=== PATIENT | female | born 1965 | race Caucasian/White ===

== ENCOUNTER 2017-07-16 11:29 | Outpatient (CLI) | payer OTHER | END 2017-07-16 11:30 | disposition home or self-care (01) | LOC: DTY/OP 11:29 | PROVIDERS: ATTEND Surgery | DX: E11.9 Type 2 diabetes mellitus without complications (principal); E78.5 Hyperlipidemia, unspecified | CPT/HCPCS: 97802 ==

== ENCOUNTER 2017-08-06 08:00 | Inpatient (IN) | payer OTHER ==
[2017-08-06 08:54] VITALS: BMI 38.2
[2017-08-11] MEDS ORDERED: Heparin 5,000 UNITS/ML VIAL ONE (08:37)
[2017-08-11] MEDS ORDERED: CEFAZOLIN/Water 2 GM/20 ML SYRINGE ONE (08:37)
[2017-08-11] MEDS ORDERED: Midazolam HCl 2 mg/2 ml Vial ONE ×2 (08:37→09:27)
[2017-08-11] MEDS ORDERED: Bupivacaine/Epinephrine 0.25% 30 ML VIAL ONE (09:04)
[2017-08-11] MEDS ORDERED: Fentanyl 250 MCG/5 ML VIAL ONE (09:27)
[2017-08-11] MEDS ORDERED: Promethazine HCl 25 MG/ML VIAL IM PRN ×2 (11:00→11:05)
[2017-08-11] MEDS ORDERED: diphenhydrAMINE 25 MG CAP PO PRN (11:00)
[2017-08-11] MEDS ORDERED: HYDROmorphone 2 MG/ML VIAL SLOW IVP PRN (11:00)
[2017-08-11] MEDS ORDERED: Naloxone HCl 0.4 mg/ml Vial IV PRN (11:00)
[2017-08-11] MEDS ORDERED: Promethazine HCl 25 MG/ML VIAL SLOW IVP PRN (11:00)
[2017-08-11] MEDS ORDERED: Fentanyl 5000 MCG/250 ML CADD IVPB PRN (11:00)
[2017-08-11] MEDS ORDERED: Meperidine HCl/PF 25 MG/ML VIAL SLOW IVP PRN (11:00)
[2017-08-11] MEDS ORDERED: Ondansetron HCl/PF 4 MG/2 ML Vial IVP PRN ×2 (11:00→11:05)
[2017-08-11] MEDS ORDERED: Zolpidem Tartrate 5 MG TAB PO PRN (11:00)
[2017-08-11] MEDS ORDERED: diphenhydrAMINE 50 MG/ML VIAL IM PRN (11:00)
[2017-08-11] MEDS ORDERED: Communication Order-Pharmacy FS SCH (11:00)
[2017-08-11] MEDS ORDERED: diphenhydrAMINE 50 MG/ML VIAL IVP PRN ×2 (11:00→11:05)
[2017-08-11] MEDS ORDERED: Morphine Sulfate 2 MG/ML SYRINGE SLOW IVP PRN (11:00)
[2017-08-11] MEDS ORDERED: Dextrose 50% Abboject 50 ML SYRINGE SLOW IVP PRN (11:05)
[2017-08-11] MEDS ORDERED: hydrALAZINE 20 MG/ML VIAL SLOW IVP PRN (11:05)
[2017-08-11] MEDS ORDERED: Dextrose 5% in Water 1,000 ML IV PRN (11:05)
[2017-08-11] MEDS ORDERED: Hydrocodone-Acetamin 15 ML UDCUP PO PRN (11:05)
[2017-08-11] MEDS ORDERED: Insulin Regular 300 UNITS/3 ML VIAL SC PRN (11:05)
[2017-08-11] MEDS ORDERED: fentaNYL Citrate/PF 2,000 MCG in Sodium Chloride 0.9% 60 ML IV PRN (11:15)
[2017-08-11] MEDS ORDERED: Fentanyl 100 MCG/2 ML VIAL ONE (11:24)
--- NOTE | 2017-08-11 11:35 | OP ---
PREOPERATIVE DIAGNOSIS: Morbid obesity. SURGEON: Rad Sanchez M.D. PROCEDURE PERFORMED: Laparoscopic sleeve gastrectomy with esophagogastroscopy. INDICATIONS: A 51-year-old female, morbidly obese, who has attempted multiple weight loss programs w [facility]. FINDINGS: A 38 [place] bougie used. PROCEDURE IN DETAIL: After informed consent was obtained, the patient was taken to the operating jeni m and given general endotracheal anesthesia. She was placed in the supine position. The abdomen was prepped and draped in usual fashion. Local anesthesia infiltrated subcutaneously and deep. A 12 mm incision was performed. A Veress needle inserted. Drop test performed. Pneumoperitoneum was creat ed to a volume of 2 liters of carbon dioxide. Utilizing a blunt 12 mm trocar and 0 degree laparoscop e, direct visual entry abdominal cavity was performed. Unfortunately, during entry we are being [facility] ed to use a trial of a new trocar. These trocars are not sharp and were blunt and took a lot of forc e even though it was visualizing the entry. After we got it in, tip of the trocar had created a supe rficial laceration of the left superior aspect of the liver. This did not bleed much and stopped ble eding very quickly, which is direct pressure. Pneumoperitoneum was then created to a pressure of 15 mmHg. The patient placed in steep reverse Trendelenburg position. [place] liver retractor inserte d. Left lobe of liver retracted superiorly. The pylorus identified and a 12 mm port placed on the r ight beneath it and two 12s placed left subcostal. The omentum was taken off the greater curvature 5 cm from the pylorus utilizing the LigaSure. Short gastrics divided with LigaSure, left crura define d with the LigaSure. A 38-Bhutanese bougie inserted directed into the antrum. The linear 60 mm green l oad stapler used to divide the antrum gold load along the bougie, and a series of blues through the a ngle of [facility]. Intraoperative endoscopy was performed. The video endoscope inserted under direct visi on and advanced into the sleeve. The staple line inspected. There was no bleeding. Staple line the n tested by inflating the new stomach with pressurized air under water. There was no air leak. Stom ach decompressed. Scope removed. The remnant stomach removed from the abdomen through the left late ral port site. The fascia closed with interrupted 0 Vicryl suture and the GraNee needle. The liver again inspected, no bleeding. Hemostasis was assured. Trocars and retractors removed. Skin closed with interrupted 4-0 Rapide. Dermabond applied. The patient tolerated the procedure well and was tr ansferred to recovery in good condition. Sponge and needle count verified correct x2.
[2017-08-11] MEDS ORDERED: HYDROmorphone 0.5 MG/0.5 ML SYRINGE ONE (12:54)
[2017-08-11] MEDS ORDERED: Dexamethasone 20 MG/5 ML VIAL ONE (12:59)
[2017-08-11] MEDS ORDERED: Lidocaine 1% PF 5 ML VIAL ONE (12:59)
[2017-08-11] MEDS ORDERED: PROPOFOL 200 MG/20 ML VIAL ONE (12:59)
[2017-08-11] MEDS ORDERED: Glycopyrrolate 0.2 MG/ML 5 ML SYRINGE ONE (12:59)
[2017-08-11] MEDS ORDERED: Ondansetron HCl/PF 4 MG/2 ML Vial ONE (12:59)
[2017-08-11] MEDS: 1/2 NS w/KCL 20 mEq 1,000 ML IV SCH ×2 (18:04→18:11)
[2017-08-11] MEDS: CEFAZOLIN/Water 2 GM/20 ML SYRINGE SLOW IVP SCH (18:11)
[2017-08-12] MEDS: CEFAZOLIN/Water 2 GM/20 ML SYRINGE SLOW IVP SCH (00:19)
[2017-08-12] MEDS: 1/2 NS w/KCL 20 mEq 1,000 ML IV SCH ×2 (01:29→21:15)
[2017-08-12 06:00] LABS: #Lymphocytes 1.5 thou/uL (1.20-3.40); #Monocytes 0.6 thou/uL (0.11-0.59); #Neutrophils 8.1 thou/uL (1.40-6.50); %Basophils 0.1 % (0.0-1.0); %Eosinophils 0.1 % (0.0-10.0); %Lymphocytes 14.6 % (21.0-51.0); %Monocytes 5.6 % (0.0-10.0); %Neutrophils 79.7 % (42.0-75.0); Hemoglobin 13.7 g/dL (12.0-16.0); Mean Corpuscular HGB CONC 34.7 g/dL (32.0-36.0); Mean Corpuscular Hemoglobin 33.5 pg (27.0-31.0); Mean Corpuscular Volume 96.6 fl (81.0-99.0); Mean Platelet Volume 7.4 fL (7.4-10.4); Platelet Count 253 thou/uL (130-400); RBC Distribution Width 11.7 % (11.5-14.5); Red Blood Cell (RBC) Count 4.08 mill/uL (4.20-5.40); White Blood Cell (WBC) Count 10.1 thou/uL (4.8-10.8)
[2017-08-12 06:21] LABS: Anion Gap 16 mmol/L (10-20); BUN (Urea Nitrogen) 11 mg/dL (9.8-20.1); Calc. Creatinine Clearance 155 mL/min (70-130); Calcium 8.8 mg/dL (7.8-10.44); Carbon Dioxide 21 mmol/L (22-29); Chloride 103 mmol/L (98-107); Estimated GFR-MDRD 82; Glucose 105 mg/dL (70-105); Sodium 136 mmol/L (136-145)
[2017-08-12] MEDS ORDERED: Enoxaparin Sodium 40 MG/0.4 ML SYRINGE SC SCH (09:00)
[2017-08-12] MEDS ORDERED: Pantoprazole 40 MG VIAL IVP SCH (09:00)
--- NOTE | 2017-08-12 09:20 | RAD ---
LIMITED UPPER GI WITH 15 ML GASTROGRAFIN: History: Status post vertical sleeve gastrectomy. FINDINGS: There is normal passage of contrast from the esophagus into the stomach and duodenum and surgical sit e. No contrast extravasation is seen. IMPRESSION: No evidence of leak or obstruction. POS: MATTI
[2017-08-12 11:39] VITALS: BP 116/72; TEMP 98.7
[2017-08-12] MEDS ORDERED: GASTROGRAFIN 30 ML BOT ONE (13:25)
--- NOTE | 2017-08-12 13:48 | DIS ---
DISCHARGE DIAGNOSIS: Morbid obesity. PROCEDURES DURING ADMISSION: Laparoscopic sleeve gastrectomy. HOSPITAL COURSE: The patient was admitted, taken to the operating room where she underwent a sleeve gastrectomy. Postoperatively, she has done well. She is tolerating liquids well. X-ray was fine. She is discharged home in good condition on hydrocodone and Zofran. She will follow up with me in 2 weeks.
== END 2017-08-12 12:12 | disposition home or self-care (01) | DRG 621 ==
LOC: SURG A 08-11 07:36 → SJJU 08-11 14:05
PROVIDERS: ADMIT Surgery; ATTEND Surgery
PROC: 0DB64Z3 Excision of Stomach, Percutaneous Endoscopic Approach, Vertical (ICD-10-PCS; principal; 2017-08-11)
PROC: 0DJ08ZZ Inspection of Upper Intestinal Tract, Via Natural or Artificial Opening Endoscopic (ICD-10-PCS; 2017-08-11)
DX: E66.01 Morbid (severe) obesity due to excess calories (principal); E11.9 Type 2 diabetes mellitus without complications; E78.5 Hyperlipidemia, unspecified; Z68.38 Body mass index [BMI] 38.0-38.9, adult; Z79.82 Long term (current) use of aspirin; Z79.84 Long term (current) use of oral hypoglycemic drugs; Z85.528 Personal history of other malignant neoplasm of kidney; M19.90 Unspecified osteoarthritis, unspecified site; Z96.642 Presence of left artificial hip joint; Z90.5 Acquired absence of kidney
CPT/HCPCS: 36415; 36416; 74241; 80048; 85025; 88307; 88312; 94760; C9113; J0131; J1100; J1170; J1644; J1650; J2001; J2250; J2405; J2704; J3010; J7050

== ENCOUNTER 2017-08-06 08:11 | Outpatient (CLI) | payer OTHER ==
--- NOTE | 2017-08-06 09:55 | RAD ---
CHEST PA AND LATERAL: History: 52-year-old female for pre-operative evaluation. Comparison: 02-27-15 FINDINGS: Heart size is normal. The lungs are clear. Mild stable anterior right hemidiaphragm elevation. No con fluent pneumonia, overt edema or pleural effusion. IMPRESSION: No acute intrathoracic disease. POS: OFF
== END 2017-08-06 08:12 | disposition home or self-care (01) ==
LOC: LABBT 08:11
PROVIDERS: ATTEND Preventive Medicine Preventive Medicine/Occupational Environmental Medicine
DX: Z01.818 Encounter for other preprocedural examination (principal); E66.01 Morbid (severe) obesity due to excess calories
CPT/HCPCS: 71046

== ENCOUNTER 2018-02-16 15:34 | Outpatient (CLI) | payer OTHER ==
--- NOTE | 2018-02-16 18:16 | RAD ---
CHEST TWO VIEWS: 02/16/18 HISTORY: Renal neoplasm. COMPARISON: 01/06/18 FINDINGS: normal cardiac silhouette. The pulmonary vessels and hilum are normal. No consolidation or mass. No pneumothorax or osseous abnormality. IMPRESSION: No acute cardiopulmonary process. POS: ANTONETTEH
== END 2018-02-16 15:35 | disposition home or self-care (01) ==
LOC: BICRAD 15:34
PROVIDERS: ATTEND Urology
DX: C64.1 Malignant neoplasm of right kidney, except renal pelvis (principal)
CPT/HCPCS: 71046

== ENCOUNTER 2018-04-12 15:55 | Outpatient (CLI) | payer OTHER | END 2018-04-12 15:56 | disposition home or self-care (01) | LOC: BICMAMMO 15:55 | PROVIDERS: ATTEND Obstetrics & Gynecology | DX: Z12.31 Encounter for screening mammogram for malignant neoplasm of breast (principal); Z85.528 Personal history of other malignant neoplasm of kidney | CPT/HCPCS: 77063; 77067 ==

== ENCOUNTER 2018-12-30 15:49 | Outpatient (CLI) | payer OTHER ==
--- NOTE | 2018-12-30 16:12 | RAD ---
Right hip 2 views HISTORY: Right hip pain. FINDINGS: Mild joint space narrowing, osteophytosis, and subchondral sclerosis. Femoral head contour is maintained. No acute fracture, dislocation, or aggressive osseous erosions. IMPRESSION: Mild osteoarthritic changes right hip
--- NOTE | 2018-12-30 16:17 | RAD ---
EXAM: XR Lumbar Spine 2 Or 3 View PROVIDED CLINICAL HISTORY: Low back pain. COMPARISON: None FINDINGS: There are 5 nonrib-bearing lumbar-type vertebral bodies. The vertebral body heights are within normal limits. There is suggestion of minimal narrowing of the L5-S1 intervertebral disc space. Multiple osteophytes are seen scattered within the lumbar spine. No fracture or subluxation is seen. Facet deg enerative changes in the lower lumbar spine. Multiple surgical clips overlie the abdomen. IMPRESSION: Degenerative changes in the lumbar spine.
== END 2018-12-30 15:50 | disposition home or self-care (01) ==
LOC: BICRAD 15:49
PROVIDERS: ATTEND Internal Medicine
DX: M54.5 Low back pain (principal); M25.551 Pain in right hip; M47.816 Spondylosis without myelopathy or radiculopathy, lumbar region; M16.11 Unilateral primary osteoarthritis, right hip
CPT/HCPCS: 72100

== ENCOUNTER 2019-04-25 16:12 | Outpatient (CLI) | payer OTHER ==
--- NOTE | 2019-04-25 16:31 | MMO ---
Bilateral MAMMO Bilat Screen DDI+FER. CLINICAL HISTORY: Patient is 53 years old and is seen for screening. The patient has no family history of breast cancer. The patient has a history of kidney cancer at age 42. VIEWS: The views performed were: bilateral craniocaudal with tomosynthesis and bilateral mediolateral oblique with tomosynthesis. FILMS COMPARED: The present examination has been compared to prior imaging studies performed at [facility] on 04/12/2018, and at [facility] on 10/04/2014, 12/02/2015 and 03/17/2017. This study has been interpreted with the assistance of computer-aided detection. MAMMOGRAM FINDINGS: There are scattered fibroglandular densities. There are no suspicious masses, suspicious calcifications, or new areas of architectural distortion. IMPRESSION: THERE IS NO MAMMOGRAPHIC EVIDENCE OF MALIGNANCY. A ROUTINE FOLLOW-UP MAMMOGRAM IN 1 YEAR IS RECOMMENDED. THE RESULTS OF THIS EXAM WERE SENT TO THE PATIENT. ACR BI-RADS Category 1 - Negative MAMMOGRAPHY NOTE: 1. A negative mammogram report should not delay a biopsy if a dominant of clinically suspicious mass is present. 2. Approximately 10% to 15% of breast cancers are not detected by mammography. 3. Adenosis and dense breasts may obscure an underlying neoplasm. Reported by: GIOVANA HUBBARD MD Electonically Signed: [id number]
== END 2019-04-25 16:13 | disposition home or self-care (01) ==
LOC: BICMAMMO 16:12
PROVIDERS: ATTEND Obstetrics & Gynecology
DX: Z12.31 Encounter for screening mammogram for malignant neoplasm of breast (principal); Z85.528 Personal history of other malignant neoplasm of kidney
CPT/HCPCS: 77063; 77067

== ENCOUNTER 2019-05-30 03:55 | Emergency (ER) | payer OTHER ==
[2019-05-30] MEDS ORDERED: Ondansetron PF 4 MG/2 ML Vial ONE (04:13)
[2019-05-30] MEDS ORDERED: Morphine 4 MG/ML VIAL ONE (04:13)
[2019-05-30 04:21] LABS: #Basophils 0.1 thou/uL (0.0-0.2); #Eosinphils 0.2 thou/uL (0.0-0.7); #Lymphocytes 2.6 thou/uL (1.20-3.40); #Monocytes 0.6 thou/uL (0.11-0.59); #Neutrophils 2.7 thou/uL (1.40-6.50); %Basophils 1.2 % (0.0-1.0); %Eosinophils 2.7 % (0.0-10.0); %Lymphocytes 42.8 % (21.0-51.0); %Monocytes 9.9 % (0.0-10.0); %Neutrophils 43.5 % (42.0-75.0); Hemoglobin 16.2 g/dL (12.0-16.0); Mean Corpuscular HGB CONC 34.8 g/dL (32.0-36.0); Mean Corpuscular Hemoglobin 33.2 pg (27.0-31.0); Mean Corpuscular Volume 95.3 fL (78.0-98.0); Mean Platelet Volume 7.3 fL (7.4-10.4); Platelet Count 238 thou/uL (130-400); Red Blood Cell (RBC) Count 4.89 mill/uL (4.20-5.40); White Blood Cell (WBC) Count 6.1 thou/uL (4.8-10.8)
[2019-05-30 04:37] LABS: ALT (SGPT) 19 U/L (8-55); AST (SGOT) 20 U/L (5-34); Albumin 4.6 g/dL (3.5-5.0); Alkaline Phosphatase 75 U/L (40-110); Anion Gap 13 mmol/L (10-20); BUN (Urea Nitrogen) 14 mg/dL (9.8-20.1); Bilirubin, Total 0.5 mg/dL (0.2-1.2); Calc. Creatinine Clearance 0 mL/min (70-130); Calcium 10.3 mg/dL (7.8-10.44); Carbon Dioxide 31 mmol/L (22-29); Chloride 102 mmol/L (98-107); Estimated GFR-MDRD 84; Globulin 2.5 g/dL (2.4-3.5); Glucose 107 mg/dL (70-105); Lipase 42 U/L (8-78); Potassium 4.3 mmol/L (3.5-5.1); Protein, Total 7.1 g/dL (6.0-8.3); Sodium 142 mmol/L (136-145)
[2019-05-30 04:45] LABS: Bacteria/HPF None Seen HPF (None Seen); Bilirubin Negative (Negative); Blood, Urine Negative (Negative); Clarity Turbid (Clear); Glucose, Urine (Dipstick) Normal (Negative); Leukocyte 250 Leu/uL (Negative); Nitrite Negative (Negative); Protein, Urine (Dipstick) Negative (Neg-Trace); RBC/HPF 0-3 HPF (0-3); Squamous Epithelial 0-3 HPF (0-3); Urobilinogen Normal mg/dL (Less than 2)
[2019-05-30] MEDS ORDERED: Sucralfate 1 GM/10 ML UDCUP ONE (05:03)
[2019-05-30] MEDS ORDERED: HYDROcodone/Acetaminophen 5/325 mg Tablet ONE (05:34)
--- NOTE | 2019-05-30 08:05 | CT ---
PRELIMINARY REPORT/[facility]/EMERGENCY AFTER HOURS PROCEDURE: PROCEDURE: CT Scan Abdomen and Pelvis with IV Contrast Material. HISTORY: Abdomen pain. TECHNIQUE: Axial images were performed with multiplanar reconstructions. The patient was given iodin ated contrast intravenously. The patient was not given oral contrast material. COMPARISONS: None . FINDINGS: Clear lung bases. Small hiatal hernia. Liver, spleen, adrenals, and pancreas show no abnormality. Kidneys show normal enhancement with no m asses or obstructive uropathy. RIGHT renal cortical scarring versus peripheral angiomyolipoma lower pole. There has been previous cholecystectomy with normal sized biliary tree. No abdominal ascites or pneumoperitoneum. Normal aorta. No lymphadenopathy. Previous gastric sleeve. Nonspecific fluid in distal ileal bowel loops with no evidence of obstructi on or inflammation. Normal appendix. Pelvis shows no masses. Cervix shows 4.1 cm cyst. Normal urinary bladder. No acute bony abnormality. IMPRESSION: Nonspecific fluid in ileal bowel loops with no obstruction or inflammation. Large cervical cyst. No other acute change identified. ELECTRONICALLY SIGNED BY: Juan Lyle MD May 30, 2019 4:49:00 AM PLATEN DRIER OPERATOR This report is intended for review by the ordering physician only, in accordance of law. If you recei ve this report in error, please call [facility] at [phone]. FINAL REPORT EMERGENT AFTER HOURS CT OF THE ABDOMEN AND PELVIS WITH CONTRAST: FINDINGS/IMPRESSION: I agree with the findings and impression given in the preliminary report per [facility] physici an. 1. Nonspecific fluid-filled loops of terminal ileum. 2. Cervical cyst. POS: [facility]
[2019-05-30] MEDS ORDERED: Iopamidol-370 76% 500 ML 1 ML ONE (13:23)
== END 2019-05-30 05:59 | disposition home or self-care (01) ==
LOC: ERS 03:55
DX: R10.13 Epigastric pain (principal); E11.9 Type 2 diabetes mellitus without complications; E78.5 Hyperlipidemia, unspecified; E78.00 Pure hypercholesterolemia, unspecified; Z79.899 Other long term (current) drug therapy
CPT/HCPCS: 74177; 80053; 81003; 81015; 83690; 84484; 85025; 93005; J2270; J2405; Q9967

== ENCOUNTER 2019-05-30 11:07 | Inpatient (IN) | payer OTHER ==
[2019-05-30] MEDS ORDERED: Heparin 1,000 UNITS/ML VIAL ONE (12:07)
[2019-05-30] MEDS ORDERED: Morphine 4 MG/ML VIAL ONE ×2 (12:35→14:22)
[2019-05-30] MEDS ORDERED: Ondansetron PF 4 MG/2 ML Vial ONE (12:35)
[2019-05-30 12:46] LABS: #Basophils 0.1 thou/uL (0.0-0.2); #Eosinphils 0.1 thou/uL (0.0-0.7); #Lymphocytes 1.4 thou/uL (1.20-3.40); #Monocytes 0.5 thou/uL (0.11-0.59); #Neutrophils 7.7 thou/uL (1.40-6.50); %Basophils 0.5 % (0.0-1.0); %Eosinophils 0.8 % (0.0-10.0); %Lymphocytes 14.3 % (21.0-51.0); %Monocytes 5.1 % (0.0-10.0); %Neutrophils 79.3 % (42.0-75.0); Hemoglobin 15.7 g/dL (12.0-16.0); Mean Corpuscular HGB CONC 34.2 g/dL (32.0-36.0); Mean Corpuscular Hemoglobin 32.8 pg (27.0-31.0); Mean Corpuscular Volume 95.6 fL (78.0-98.0); Mean Platelet Volume 7.1 fL (7.4-10.4); Platelet Count 218 thou/uL (130-400); RBC Distribution Width 11.1 % (11.5-14.5); White Blood Cell (WBC) Count 9.7 thou/uL (4.8-10.8)
--- NOTE | 2019-05-30 12:56 | RAD ---
Portable frontal chest radiograph: 05/30/2019 COMPARISON: 02/27/2015 HISTORY: Short of breath FINDINGS: No pneumothorax or pleural fluid. No focal consolidation or alveolar edema. Heart and media stinal contours are stable. IMPRESSION: No acute findings.
[2019-05-30 12:59] LABS: ALT (SGPT) 17 U/L (8-55); AST (SGOT) 17 U/L (5-34); Albumin 4.3 g/dL (3.5-5.0); Alkaline Phosphatase 68 U/L (40-110); Anion Gap 11 mmol/L (10-20); BUN (Urea Nitrogen) 11 mg/dL (9.8-20.1); Bilirubin, Direct 0.2 mg/dL (0.1-0.3); Bilirubin, Total 0.5 mg/dL (0.2-1.2); Calc. Creatinine Clearance 0 mL/min (70-130); Calcium 9.7 mg/dL (7.8-10.44); Carbon Dioxide 31 mmol/L (22-29); Chloride 102 mmol/L (98-107); Estimated GFR-MDRD 78; Globulin 2.2 g/dL (2.4-3.5); Glucose 114 mg/dL (70-105); Protein, Total 6.5 g/dL (6.0-8.3); Sodium 140 mmol/L (136-145)
[2019-05-30] MEDS ORDERED: Ondansetron ODT 4 MG TAB PO PRN (17:25)
[2019-05-30] MEDS ORDERED: hydrALAZINE 20 MG/ML VIAL SLOW IVP PRN (17:25)
[2019-05-30] MEDS ORDERED: Dextrose 5% in Water 1,000 ML IV PRN (17:41)
[2019-05-30] MEDS ORDERED: Dextrose 50% Abboject 50 ML SYRINGE SLOW IVP PRN (17:41)
[2019-05-30] MEDS: Famotidine/PF 20 mg/2ml Vial SLOW IVP SCH (20:02)
[2019-05-30] MEDS: Sodium Chloride 0.9% 1,000 ML IV SCH (20:02)
[2019-05-30] MEDS: Morphine 4 MG/ML VIAL SLOW IVP PRN (20:02)
[2019-05-30] MEDS: Ondansetron PF 4 MG/2 ML Vial IVP PRN (20:12)
--- NOTE | 2019-05-30 21:46 | HP ---
PRIMARY CARE PROVIDER: Alejo Lundberg MD CHIEF COMPLAINT: Abdominal pain. HISTORY OF PRESENT ILLNESS: This is a 53-year-old female, who initially presented in the broom stitcher hours on 05/30/2019 complaining of sudden onset of central abdominal pain. The patient went to bed feeling normally after eating dinner at [employer] with her . The patient began feeling abdominal cramping that was sharp, centrally located with some radiation to the back. The pain became unbearable at which point she had some nausea and presented to the emergency room for evaluation. The patient became concerned that she had gallstones, however, has had a cholecystectomy several years prior to this evaluation. The patient underwent CT imaging of the abdomen and pelvis during her initial workup in the emergency room, showing no acute process and questionable mild ileus. The patient initially received morphine sulfate intravenously as well as Zofran, Carafate, and [place]. The patient also received intravenous normal saline x1 L and was discharged home. The patient states she returned home, however, the symptoms progressed with severe abdominal cramping at which point she came back to the emergency room for evaluation. Chest imaging was performed showing no acute infiltrate and screening metabolic survey was essentially unremarkable with negative lipase and LFTs. The patient received additional morphine sulfate up to 16 mg total in the emergency, room as well as IV Zofran. The patient persisted with nausea and several episodes of emesis during this evaluation. The patient denies any prior similar incidence, recent trauma, injury, travel history, or documented fever. The patient denied any hematemesis, melena, change to bowel habits with her last bowel movement in the last 24 hours. PAST MEDICAL HISTORY: 1. Hyperlipidemia. 2. Hypothyroidism. 3. History of renal cell carcinoma, status post partial nephrectomy. 4. Cholelithiasis, status post cholecystectomy. 5. Diabetes mellitus, type 2. PAST SURGICAL HISTORY: 1. Status post partial right nephrectomy, 2007. 2. Status post left total hip arthroplasty, 2005. 3. Status post section. 4. Status post tonsillectomy. 5. Status post bilateral tubal ligation. 6. Status post gastric sleeve. 7. Status post cholecystectomy. 8. Status post wisdom teeth extraction. 9. Status post foot surgery. 10. Status post EGD with ERCP, 2014. 11. Status post repair of rectocele. CURRENT MEDICATIONS: Based on review of electronic medical record. 1. Aspirin 81 mg p.o. daily. 2. Lipitor 10 mg p.o. at bedtime. 3. Invokana 300 mg p.o. q.a.m. 4. Vitamin D3 of 2000 units p.o. b.i.d. 5. Fenofibrate 90 mg p.o. at bedtime. 6. Synthroid 112 mcg p.o. daily. 7. Victoza 1.8 mg subcutaneously daily. 8. Magnesium 400 mg p.o. daily. 9. Multivitamin 1 tablet p.o. daily. 10. MiraLAX 17 g p.o. daily p.r.n. ALLERGIES: NO KNOWN DRUG ALLERGIES. FAMILY HISTORY: Father with history of diabetes mellitus. SOCIAL HISTORY: , accompanied by her in the hospital. Occasional alcohol use. No tobacco or illicit drug use. REVIEW OF SYSTEMS: CONSTITUTIONAL: Negative for weight loss or gain, ability to conduct usual activities. SKIN: Negative for rash, itching. EYES: Negative for double vision, pain. ENT/MOUTH: Negative for nose bleeding, neck stiffness, pain, tenderness. CARDIOVASCULAR: Negative for palpitations, dyspnea on exertion, orthopnea. RESPIRATORY: Negative for shortness of breath, wheezing, cough, hemoptysis, fever or night sweats. GASTROINTESTINAL: Negative for poor appetite, abdominal pain, heartburn, nausea, vomiting, constipation, or diarrhea. GENITOURINARY: Negative for urgency, frequency, dysuria, nocturia. MUSCULOSKELETAL: Negative for pain, swelling. NEUROLOGIC/PSYCHIATRIC: Negative for anxiety, depression. ALLERGY/IMMUNOLOGIC: Negative for skin rash, bleeding tendency. Otherwise negative except as stated per HPI. PHYSICAL EXAMINATION: VITAL SIGNS: On admission, blood pressure 155/84, pulse 73, respiratory rate 14, temperature 98 degrees Fahrenheit, and O2 saturation 96% on room air. GENERAL APPEARANCE: This is a 53-year-old female, alert and oriented x3, in [id number] distress. HEENT: Pupils are equal, round, reactive to light and accommodation. Extraocular muscles are intact. No scleral icterus. No conjunctival injection. Nares are patent. OP is clear. Oral mucosa dry. NECK: Supple. No cervical adenopathy. No thyromegaly. No carotid bruits. No JVD appreciated. Cervical spine with full active and passive range of motion. No meningeal signs noted. CHEST: Lungs are clear to auscultation bilaterally. CARDIOVASCULAR: S1 and S2 without noted murmur, rub, or gallop. ABDOMEN: Rounded, soft with mild tenderness to palpation in the mid epigastric and right upper quadrant region. No rebound or guarding noted. No palpable mass. Bowel sounds are positive. EXTREMITIES: Warm and dry with fair turgor. No clubbing, cyanosis, or asymmetric edema appreciated. Pulses palpable distally at the dorsalis pedis, posterior tibial, and popliteal arteries bilaterally. Capillary refill less than 2 seconds. NEUROLOGIC: Cranial nerves 2 through 12 are grossly intact. No focal or lateralizing signs appreciated. PERTINENT LABORATORY AND X-RAY FINDINGS: Complete metabolic profile within normal limits. Lipase 16. Troponin I negative x1. CBC showed a white blood cell count of 9.7, hemoglobin 16, hematocrit 46, platelet count 218, with 79% neutrophils. CT of the abdomen and pelvis dated 05/30/2019, showed nonspecific fluid-filled loops of the terminal ileum. ASSESSMENT AND PLAN: 1. Abdominal pain. The patient will be admitted to the medical floor. Exact etiology unclear with questionable ileus on CT imaging. N.p.o. status except for sips of water and ice chips. Check abdominal ultrasound to rule out any further pathology not observed on CT imaging. Consult GI Service for any further recommendations. Pain control with morphine sulfate 4 mg IV q.4 hours p.r.n. Consider repeat CT imaging if no clinical improvement in the next 24 hours. 2. Nausea and vomiting. We will continue intravenous normal saline at 125 mL/h. Phenergan 25 mg IV q.6 hours p.r.n. Zofran 8 mg IV q.6 hours p.r.n. 3. Diabetes mellitus, type 2. Insulin sliding scale for reflexive coverage. Hold oral and subcutaneous hypoglycemics until tolerating regular p.o. intake. 4. Hypothyroidism. Check TSH and free T4 level in the a.m. Continue Synthroid 112 mcg daily. 5. Prophylaxis. SCDs while in bed. Pepcid 20 mg IV q.12 hours. 6. Code status is full. Surrogate medical decision maker is the patient's spouse. Job ID: [id number]
[2019-05-30 22:17] VITALS: BMI 31.6
--- NOTE | 2019-05-30 23:01 | ULT ---
Sonogram abdomen complete HISTORY: Abdominal pain. FINDINGS: Gallbladder surgically absent. Common duct is 1.0 cm. Liver is diffusely hypoechoic. No foc al mass or intrahepatic biliary dilatation. Minimal free fluid in the left upper quadrant. Junctional parenchymal defect noted near the inferior pole of the right kidney. The spleen, left kidn ey, and visualized portions of abdominal aorta, IVC, and pancreas are unremarkable. IMPRESSION: Edematous appearance of the liver. Clinical correlation regarding other signs and symptom s of nonspecific hepatitis is required. No focal abnormalities demonstrated. Status post cholecystectomy.
[2019-05-31] MEDS: Acetaminophen 500 MG TAB PO PRN ×2 (04:15→14:11)
[2019-05-31] MEDS: Sodium Chloride 0.9% 1,000 ML IV SCH ×4 (04:15→20:41)
[2019-05-31 05:44] LABS: Band 7 % (5-11); Eosinophils 3 % (0-10); Hemoglobin 16.2 g/dL (12.0-16.0); Hypochromia SLIGHT = 6-15 cells (100X) (0-5/hpf); Lymphocytes 12 % (21-51); MDiff Complete? YES; Mean Corpuscular HGB CONC 34.3 g/dL (32.0-36.0); Mean Corpuscular Hemoglobin 33.1 pg (27.0-31.0); Mean Corpuscular Volume 96.7 fL (78.0-98.0); Mean Platelet Volume 7.2 fL (7.4-10.4); Monocytes 5 % (0-10); Neutrophil 73 % (42-75); Platelet Count 239 thou/uL (130-400); Platelet Morphology Comment Appears Adequate; RBC Distribution Width 11.3 % (11.5-14.5); Red Blood Cell (RBC) Count 4.89 mill/uL (4.20-5.40); White Blood Cell (WBC) Count 11.3 thou/uL (4.8-10.8)
[2019-05-31 05:56] LABS: ALT (SGPT) 12 U/L (8-55); AST (SGOT) 13 U/L (5-34); Alkaline Phosphatase 65 U/L (40-110); Anion Gap 12 mmol/L (10-20); BUN (Urea Nitrogen) 13 mg/dL (9.8-20.1); Bilirubin, Total 0.7 mg/dL (0.2-1.2); Calc. Creatinine Clearance 137 mL/min (70-130); Carbon Dioxide 26 mmol/L (22-29); Chloride 103 mmol/L (98-107); Estimated GFR-MDRD 90; Globulin 2.3 g/dL (2.4-3.5); Glucose 127 mg/dL (70-105); Potassium 4.3 mmol/L (3.5-5.1); Protein, Total 6.3 g/dL (6.0-8.3); Sodium 137 mmol/L (136-145)
[2019-05-31 06:13] LABS: Free T4 (Free Thyroxine) 1.01 ng/dL (0.70-1.48); Thyroid Stimulating Hormone 0.7138 uIU/mL (0.35-4.94)
--- NOTE | 2019-05-31 07:43 | CON ---
DATE OF CONSULTATION: 05/30/2019 REASON FOR CONSULTATION: Abdominal pain status post sleeve gastrectomy. CHIEF COMPLAINT: Abdominal pain. HISTORY OF PRESENT ILLNESS: This is a 53-year-old woman with a history of morbid obesity and the comorbidities of morbid obesity who is status post sleeve gastrectomy [place] [address] Rad Sanchez. She presents to the emergency department with a 1-day history of abdominal pain. The pain is located in the epigastrium and is described as "sharp and cramping." She denies any emesis, but endorses nausea. She denies any change in bowel habits. She has a previous history of choledocholithiasis that occurred after a laparoscopic cholecystectomy. She underwent ERCP, where a biliary stone was removed. She relates that this episode feels similar to that episode. PAST MEDICAL HISTORY: Hypothyroidism. PAST SURGICAL HISTORY: 1. Sleeve gastrectomy. 2. Cholecystectomy. 3. Hip replacement. 4. Partial nephrectomy. FAMILY HISTORY: Noncontributory. SOCIAL HISTORY: Denies tobacco use. Endorses occasional alcohol use. Denies illicit drug use. . REVIEW OF SYSTEMS: 12-point review of systems obtained and is negative except as stated in the History of Present Illness. PHYSICAL EXAMINATION: GENERAL: Alert and oriented, no acute distress. VITAL SIGNS: Within normal limits. HEENT: Atraumatic, normocephalic. Pupils equal and reactive, no jaundice. NECK: No jugular venous distention. Trachea is midline. Thyroid is normal size. CARDIOVASCULAR: Regular rate and rhythm. RESPIRATORY: Clear to auscultation bilaterally. ABDOMEN: Soft, nondistended. most notably in the right upper quadrant with deep inspiration. Negative Bullock sign. EXTREMITIES: No edema or deformities. NEUROLOGICAL: Gross motor and sensory intact. PSYCHIATRIC: affect. LABORATORY ANALYSIS: Reviewed and is grossly normal. IMAGING STUDIES: CT of the abdomen and pelvis reviewed as well as the radiologist's interpretation. It demonstrates a small hiatal hernia with sleeve gastrectomy. There are fluid-filled loops in ileum of questionable importance. Evidence of prior cholecystectomy. Otherwise, no acute findings. ASSESSMENT: A 53-year-old female with abdominal pain and history of sleeve gastrectomy. RECOMMENDATIONS: It does not appear to be a relationship between her bariatric surgery status and her current complaints. Given her prior history of choledocholithiasis after cholecystectomy, primary cholelithiasis may be an etiology. Recommend hospitalist admission and observation. Consider GI consultation. Job ID: [id number]
[2019-05-31] MEDS: Famotidine/PF 20 mg/2ml Vial SLOW IVP SCH (07:51)
--- NOTE | 2019-05-31 10:20 | PDOC.HOSPP ---
- Subjective Encounter Date: 05/31/19 Encounter Time: 10:10 Subjective: f/u for abd pain and suspected ileus. Improved overall with NPO status and IVF' s. Mild abd pain this am but no N/V. + flatus. - Objective Vital Signs & Weight: Vital Signs (12 hours) Temp Pulse Resp BP Pulse Ox 05/31/19 08:00 94 L 05/31/19 07:59 98.5 F 82 18 118/74 94 L 05/31/19 04:22 97.2 F L 81 19 116/74 95 05/31/19 00:50 98.0 F 91 18 124/76 97 Weight Weight 201 lb 9.6 oz I&O: 05/30/19 05/31/19 06/01/19 06:59 06:59 06:59 Intake Total 1250 Output Total 200 Balance 1050 Result Diagrams: 05/31/19 05:17 05/31/19 05:17 Additional Labs: Accuchecks 05/31/19 05/30/19 05:25 22:05 POC Glucose 130 H 146 H Laboratory Tests 05/30/19 05/31/19 05/31/19 12:21 05:17 05:17 WBC 9.7 Hgb 15.7 Neutrophils % 79.3 H Neutrophils % (Manual) 73 Free T4 1.01 TSH 3rd Generation 0.7138 Radiology Reviewed by me: Yes (ABD sono - no CBD dilation/stone) Hospitalist ROS - Medication Medications: Active Medications Generic Name Dose Route Start Last Admin Trade Name Freq PRN Reason Stop Dose Admin Acetaminophen 1,000 mg 05/30/19 17:25 05/31/19 04:15 Tylenol PO 1,000 mg Q6H PRN Administration Mild Pain (1-3) Famotidine 20 mg 05/30/19 21:00 05/31/19 07:51 Pepcid SLOW IVP 20 mg Q12HR LANI Administration Sodium Chloride 1,000 mls @ 125 mls/hr 05/30/19 17:30 05/31/19 07:53 Normal Saline 0.9% IV 1,000 mls .Q8H LANI Administration Morphine Sulfate 4 mg 05/30/19 17:29 05/30/19 20:02 Morphine SLOW IVP 4 mg Q4H PRN Administration Moderate to Severe Pain (6-10) Ondansetron HCl 8 mg 05/30/19 17:25 05/30/19 20:12 Zofran IVP 8 mg Q6H PRN Administration Nausea/Vomiting - Exam General Appearance: NAD, awake alert Eye: PERRL, anicteric sclera ENT: normocephalic atraumatic, no oropharyngeal lesions Neck: supple, symmetric, no JVD, no thyromegaly Heart: RRR, no murmur, no gallops, no rubs, normal peripheral pulses Respiratory: CTAB, no wheezes, no rales, no ronchi, normal chest expansion Gastrointestinal: soft, non-distended, normal bowel sounds, no palpable masses Gastrointestinal - other findings: mild TTP in mid-epigastric region Extremities: no cyanosis, no clubbing, no edema Skin: normal turgor, no lesions Neurological: cranial nerve grossly intact, no new deficit Musculoskeletal: normal tone, normal strength, no muscle wasting Psychiatric: normal affect, A&O x 3 Hosp A/P (1) Abdominal pain Code(s): R10.9 - UNSPECIFIED ABDOMINAL PAIN Status: Acute Qualifiers: Abdominal location: epigastric Qualified Code(s): R10.13 - Epigastric pain Plan: Suspected due to ileus, supportive mgmt, CT and sono imaging essentially negative, IVF's, pain control (2) Ileus Code(s): K56.7 - ILEUS, UNSPECIFIED Status: Acute Plan: Suspected, clear liquids as tolerated, GI consult pending (3) DM II (diabetes mellitus, type II), controlled Code(s): E11.9 - TYPE 2 DIABETES MELLITUS WITHOUT COMPLICATIONS Status: Chronic Plan: Diet controlled (4) Hypothyroid Code(s): E03.9 - HYPOTHYROIDISM, UNSPECIFIED Status: Chronic Plan: Resume home Synthroid - Plan plan discussed w/ family, out of bed/ambulate, DVT proph w/SCDs Stable currently Clear liquids as tolerated Zofran/Phenergan PRN OOB/ambulate GI consult pending Likely home in 24h
--- NOTE | 2019-05-31 11:20 | PRG ---
DATE OF SERVICE: 05/31/2019 SUBJECTIVE: The patient is nearly 2 years status post sleeve gastrectomy, who reports that had the acute onset of severe epigastric pain at approximately 2:30 a.m. Wednesday. Yesterday, she developed bilious vomiting. She last ate Wednesday night. She reports she is passing gas. No fever. She had similar pain in 2014, and was found to have choledocholithiasis and underwent ERCP x2. OBJECTIVE: VITAL SIGNS: Her temperature is 98.5, pulse 82, and blood pressure 118/74. GENERAL: She is awake and alert, in minimal distress. HEENT: No jaundice. LUNGS: Clear. HEART: Regular rate and rhythm. ABDOMEN: Soft. Really no focal tenderness. Nondistended. Well-healed surgical scars. LABORATORY DATA: White count 11.3, hemoglobin and hematocrit of 16 and 47, and platelet count 239. Electrolytes are fine. Elevated glucose at 130. She had a CT scan that showed some nonspecific fluid in the ileal bowel loops without obstruction or inflammation, otherwise negative. She had an ultrasound that showed absence of gallbladder. No biliary dilatation. No masses. Minimal free fluid in left upper quadrant. ASSESSMENT: Abdominal pain, unknown etiology. PLAN: Recommend GI consultation. Job ID: [id number]
[2019-05-31] MEDS: Morphine 4 MG/ML VIAL SLOW IVP PRN ×3 (11:42→20:40)
[2019-05-31] MEDS ORDERED: Morphine 2 MG/ML SYRINGE SLOW IVP SCH (14:45)
[2019-05-31] MEDS: Ondansetron PF 4 MG/2 ML Vial IVP PRN (16:50)
--- NOTE | 2019-05-31 19:07 | CON ---
DATE OF CONSULTATION: 05/31/2019 CHIEF COMPLAINT: Abdominal pain. HISTORY OF PRESENT ILLNESS: Ms. Lima is a 53-year-old woman who was admitted last night to the hospital with epigastric abdominal pain. She woke up with sharp to cramping severe epigastric pain early yesterday morning. She went to the emergency room and CT scan of the abdomen and pelvis was performed with contrast that showed no obvious source for her abdominal pain. There was some fluid in the ileal bowel loops, but no evidence of obstruction. No comment was made on the bile duct at that point. She was discharged home with pain medicine, but the pain just returned with continued sandro severity and she went back to the emergency room. Ultrasound was performed. The common bile duct was noted to be 1 cm. The liver appeared edematous. She was admitted for further care. She has had continued episodes of intermittent severe pain with intermittent episodes of less pain, but the pain has not gone away at all throughout. She vomited bilious material last night, but has not had ongoing vomiting today. She had a gastric sleeve surgery back in 2017 and was evaluated for General Surgery regarding that, no obvious relationship with her current symptoms was identified. She had endoscopy back in February 2015 for similar and severe epigastric pain and back pain. She had a CT scan at that time that showed some thickening of the lower esophagus. She only had minimal elevation of her transaminases initially. She underwent EGD and at the time of the EGD, she was found to have a black pigment stone impacted at the ampulla. This was dislodged with the snare. The next day, she underwent a formal ERCP and a sphincterotomy was performed with balloon stone extraction. Her liver tests did increase between the two procedures. Her cholecystectomy was originally around 2010. The patient has had no blood in the stool. No diarrhea, constipation, or hematemesis. Her pain is temporarily relieved with morphine, but then comes back. PAST MEDICAL HISTORY: Hyperlipidemia, hypothyroidism, renal cell carcinoma status post partial nephrectomy, diabetes mellitus, history of adenomatous colon polyps, cholelithiasis, and subsequent primary choledocholithiasis status post ERCP and sphincterotomy. PAST SURGICAL HISTORY: Partial right nephrectomy, left total hip replacement, , cholecystectomy, tonsillectomy, tubal ligation, gastric sleeve, wisdom teeth extraction, foot surgery, ERCP, and rectocele repair. FAMILY HISTORY: Negative for GI malignancy. SOCIAL HISTORY: Occasional alcohol. No tobacco or drugs. ALLERGIES: NO KNOWN DRUG ALLERGIES. MEDICATIONS: Prior to admission: 1. Aspirin. 2. Lipitor. 3. Invokana. 4. Vitamin D. 5. Fenofibrate. 6. Synthroid. 7. Victoza. 8. Magnesium. 9. MiraLAX. 10. Multivitamin. REVIEW OF SYSTEMS: Negative x10 systems reviewed, except as stated in the history of present illness. PHYSICAL EXAMINATION: VITAL SIGNS: Temperature 98.8, pulse 78, and blood pressure 131/86. GENERAL: She is in mild distress with the abdominal pain. HEENT: Her eyes have no scleral icterus. Oropharynx is clear without lesions. No cervical or supraclavicular lymphadenopathy. LUNGS: Clear to auscultation bilaterally. HEART: Regular rate and rhythm without murmur. ABDOMEN: Soft without tenderness in the left lower abdomen, but she is markedly tender in the right upper quadrant. She is hesitant to allow palpation of her abdomen in that area. EXTREMITIES: She has no lower extremity edema. LABORATORY DATA: White blood cell count 11.3, hemoglobin is 16.2, platelets 239. Creatinine 0.68. Bilirubin 0.7, AST 13, ALT 12, alkaline phosphatase 65, and lipase 16. IMPRESSION: Severe epigastric right upper quadrant abdominal pain. She has had prior gastric sleeve. Ulcer gastritis could be a consideration. However, pain was very abrupt onset and I am still concerned about the possibility of choledocholithiasis. She had endoscopy back in 2014, at which time a stone was found impacted at the ampulla. However, her transaminases were only minimally elevated at the time. They did subsequently increase, but at the time that her pain onset she only had very mild elevation of the transaminases with normal bilirubin and normal alkaline phosphatase. She did have a sphincterotomy, but given her history, I am concerned that she could have recurrent choledocholithiasis despite normal liver tests. Her bile duct is dilated at 1 cm despite sphincterotomy. RECOMMENDATIONS: 1. I will plan MRCP this evening. 2. I will schedule for upper endoscopy and potentially ERCP for tomorrow morning. I would be inclined to proceed with ERCP even if the MRCP is nondiagnostic. She has had a prior sphincterotomy, which should reduce her risk for ERCP. Upper endoscopy to evaluate for ulcer and gastritis can be performed at the same time. 3. Check trend of her liver tests tomorrow morning. Job ID: [id number]
[2019-05-31] MEDS ORDERED: Promethazine HCl 25 MG in Sodium Chloride 0.9% 50 ML IVPB PRN (19:09)
[2019-05-31] MEDS: Pantoprazole 40 MG VIAL IVP SCH (19:32)
[2019-06-01] MEDS: Levothyroxine Sodium 112 MCG TAB PO SCH (05:10)
[2019-06-01] MEDS: Levothyroxine Sodium 25 MCG TAB PO SCH (05:11)
[2019-06-01 05:30] LABS: #Basophils 0.1 thou/uL (0.0-0.2); #Eosinphils 0.1 thou/uL (0.0-0.7); #Lymphocytes 1.7 thou/uL (1.20-3.40); #Monocytes 0.7 thou/uL (0.11-0.59); #Neutrophils 7.8 thou/uL (1.40-6.50); %Basophils 0.5 % (0.0-1.0); %Eosinophils 1.1 % (0.0-10.0); %Lymphocytes 16.3 % (21.0-51.0); %Monocytes 6.8 % (0.0-10.0); %Neutrophils 75.2 % (42.0-75.0); Hemoglobin 16.6 g/dL (12.0-16.0); Mean Corpuscular HGB CONC 33.1 g/dL (32.0-36.0); Mean Corpuscular Hemoglobin 32.2 pg (27.0-31.0); Mean Corpuscular Volume 97.3 fL (78.0-98.0); Platelet Count 273 thou/uL (130-400); RBC Distribution Width 11.3 % (11.5-14.5); Red Blood Cell (RBC) Count 5.15 mill/uL (4.20-5.40); White Blood Cell (WBC) Count 10.3 thou/uL (4.8-10.8)
[2019-06-01 06:00] LABS: ALT (SGPT) 11 U/L (8-55); AST (SGOT) 14 U/L (5-34); Albumin 4.1 g/dL (3.5-5.0); Alkaline Phosphatase 66 U/L (40-110); Anion Gap 16 mmol/L (10-20); BUN (Urea Nitrogen) 14 mg/dL (9.8-20.1); Bilirubin, Total 0.9 mg/dL (0.2-1.2); Calc. Creatinine Clearance 121 mL/min (70-130); Calcium 9.1 mg/dL (7.8-10.44); Carbon Dioxide 24 mmol/L (22-29); Chloride 104 mmol/L (98-107); Estimated GFR-MDRD 78; Globulin 2.4 g/dL (2.4-3.5); Glucose 155 mg/dL (70-105); Lipase 19 U/L (8-78); Potassium 3.9 mmol/L (3.5-5.1); Protein, Total 6.5 g/dL (6.0-8.3); Sodium 140 mmol/L (136-145)
--- NOTE | 2019-06-01 08:09 | MRI ---
EXAM: MRI of the abdomen without contrast COMPARISON: Abdominal ultrasound 05/30/2019; CT abdomen/pelvis 05/30/2019 HISTORY: Epigastric and right upper quadrant abdominal pain. TECHNIQUE: Multiplanar multi sequence MR images were taken of the abdomen without IV contrast. [An MR CP was performed.] FINDINGS: Liver: No focal liver lesions or intrahepatic ductal dilatation. Normal signal without dropout on out of phase images. Gallbladder: Absent Common bile duct: Enlarged measuring 12 mm in size without filling defect Adrenal glands: Unremarkable. Kidneys: No hydronephrosis or focal renal lesions. Spleen: Unremarkable. Pancreas: Unremarkable. Retroperitoneum: No enlarged lymph nodes Bones: No marrow signal abnormality. Fluid-filled enlarged loops of small bowel are again seen. A small amount of ascites is seen scattere d throughout the abdomen. IMPRESSION: 1. Enlargement of the common bile duct is likely a reservoir effect from prior cholecystectomy 2. There are distended loops of small bowel which may be secondary to ileus or a small bowel obstruct ion. 3. Small ascites
[2019-06-01] MEDS: Pantoprazole 40 MG VIAL IVP SCH ×2 (08:36→19:16)
[2019-06-01] MEDS: Morphine 4 MG/ML VIAL SLOW IVP PRN ×3 (08:39→23:59)
[2019-06-01] MEDS: Promethazine HCl 25 MG/ML VIAL IM/IV PRN ×3 (08:44→21:07)
[2019-06-01] MEDS: Sodium Chloride 0.9% 1,000 ML IV SCH ×3 (08:56→23:42)
[2019-06-01] MEDS ORDERED: Non-Formulary Item 1 EACH (Levothyroxine Sodium [Levothyroxine Sodium] 137 MCG) PO SCH (09:00)
[2019-06-01] MEDS ORDERED: Indomethacin 50 MG SUPP ONE ×2 (10:34)
[2019-06-01] MEDS ORDERED: Iothalamate Meglumine 60% 50 ML VIAL FS ONE (10:34)
[2019-06-01] MEDS ORDERED: Famotidine/PF 20 mg/2ml Vial ONE (10:48)
[2019-06-01] MEDS ORDERED: Ondansetron PF 4 MG/2 ML Vial ONE ×2 (10:48→14:55)
[2019-06-01] MEDS ORDERED: Famotidine 20 MG TAB ONE (10:48)
[2019-06-01] MEDS ORDERED: Scopolamine 1.5 mg/72 hour Patch ONE (10:49)
[2019-06-01] MEDS ORDERED: Fentanyl 100 MCG/2 ML VIAL ONE (10:58)
[2019-06-01] MEDS ORDERED: Midazolam HCl 2 mg/2 ml Vial ONE (10:58)
--- NOTE | 2019-06-01 12:38 | RAD ---
EXAM: ERCP HISTORY: Cholelithiasis COMPARISON: 02/28/2015 FINDINGS: Limited intraoperative fluoroscopic views were taken during a an ERCP. The common bile duct is slightly increased in caliber without filling defect. No leakage from the common bile duct. No abnormality of the intrahepatic bile ducts. IMPRESSION: No filling defects in the common bile duct.
[2019-06-01] MEDS ORDERED: MD-Gastroview 120 ML BOT ONE (13:59)
--- NOTE | 2019-06-01 14:25 | PDOC.HOSPP ---
- Subjective Encounter Date: 06/01/19 Encounter Time: 14:20 Subjective: f/u for abd pain and suspected ileus with slow clinical improvement. S/P ERCP with extension sphincterotomy and balloon sweep of CBD but no findings. Some abd pain this am. - Objective Vital Signs & Weight: Vital Signs (12 hours) Temp Pulse Resp BP Pulse Ox 06/01/19 07:40 98.8 F 95 16 133/83 96 Weight Weight 201 lb 9.6 oz I&O: 05/31/19 06/01/19 06/02/19 06:59 06:59 06:59 Intake Total 1250 1550 Output Total 200 800 Balance 1050 750 Result Diagrams: 06/01/19 05:19 06/01/19 05:19 Additional Labs: Accuchecks 06/01/19 05/31/19 04:24 19:43 POC Glucose 130 H 116 H Radiology Reviewed by me: Yes (ABD MRI - dilated small bowel loops) Hospitalist ROS - Medication Medications: Active Medications Generic Name Dose Route Start Last Admin Trade Name Freq PRN Reason Stop Dose Admin Acetaminophen 1,000 mg 05/30/19 17:25 05/31/19 14:11 Tylenol PO 1,000 mg Q6H PRN Administration Mild Pain (1-3) Cholecalciferol 2,000 units 05/31/19 21:00 06/01/19 08:47 Vitamin D3 PO Not Given BID LANI Sodium Chloride 1,000 mls @ 125 mls/hr 05/30/19 17:30 06/01/19 08:56 Normal Saline 0.9% IV 1,000 mls .Q8H LANI Administration Promethazine HCl 25 mg/ Sodium 51 mls @ 204 mls/hr 05/31/19 19:09 05/31/19 20 :41 Chloride IVPB 51 mls Q6H PRN Administration Nausea/Vomiting Levothyroxine Sodium 112 mcg 06/01/19 06:00 06/01/19 05:10 Synthroid PO Not Given 0600 LANI Levothyroxine Sodium 25 mcg 06/01/19 06:00 06/01/19 05:11 Synthroid PO Not Given 0600 LANI Morphine Sulfate 4 mg 05/30/19 17:29 06/01/19 08:39 Morphine SLOW IVP 4 mg Q4H PRN Administration Moderate to Severe Pain (6-10) Ondansetron HCl 4 mg 05/30/19 17:25 05/31/19 11:43 Zofran Odt PO 4 mg Q6H PRN Administration Nausea/Vomiting Ondansetron HCl 8 mg 05/30/19 17:25 05/31/19 16:50 Zofran IVP 8 mg Q6H PRN Administration Nausea/Vomiting Pantoprazole Sodium 40 mg 05/31/19 21:00 06/01/19 08:36 Protonix IVP 40 mg Q12HR LANI Administration Promethazine HCl 25 mg 05/30/19 17:25 06/01/19 08:44 Phenergan IM/IV 25 mg Q6H PRN Administration Nausea/Vomiting - Exam General Appearance: NAD, awake alert Eye: PERRL, anicteric sclera ENT: normocephalic atraumatic, no oropharyngeal lesions Neck: supple, symmetric, no JVD, no thyromegaly, no lymphadenopathy Heart: RRR, no murmur, no gallops, no rubs, normal peripheral pulses Respiratory: CTAB, no wheezes, no rales, no ronchi, normal chest expansion Gastrointestinal: normal bowel sounds, no palpable masses, no guarding, no rigidity Gastrointestinal - other findings: mild TTP Extremities: no cyanosis, no clubbing, no edema Skin: normal turgor, no lesions Neurological: cranial nerve grossly intact, no new deficit Musculoskeletal: normal tone, normal strength Psychiatric: normal affect, A&O x 3 Hosp A/P (1) Abdominal pain Code(s): R10.9 - UNSPECIFIED ABDOMINAL PAIN Status: Acute Qualifiers: Abdominal location: epigastric Qualified Code(s): R10.13 - Epigastric pain Plan: Likely due to ileus, supportive mgmt, pain control, clear liquids, serial exams (2) Ileus Code(s): K56.7 - ILEUS, UNSPECIFIED Status: Acute Plan: Suspected given lack of findings on EGD and ERCP, see #1 (3) DM II (diabetes mellitus, type II), controlled Code(s): E11.9 - TYPE 2 DIABETES MELLITUS WITHOUT COMPLICATIONS Status: Chronic (4) Hypothyroid Code(s): E03.9 - HYPOTHYROIDISM, UNSPECIFIED Status: Chronic - Plan plan discussed w/ family, social worker clinical, out of bed/ambulate, DVT proph w/SCDs Stable currently Clear liquids as tolerated Zofran/Phenergan PRN OOB/ambulate GI consult appreciated Likely home in 24h
[2019-06-01] MEDS ORDERED: PROPOFOL 200 MG/20 ML VIAL ONE (14:55)
[2019-06-01] MEDS ORDERED: Succinylcholine Chloride 20 MG/ML 10 ml SYRINGE FS ONE (14:55)
[2019-06-01] MEDS ORDERED: Lidocaine 1% PF 5 ML VIAL ONE (14:55)
[2019-06-01] MEDS ORDERED: Rocuronium Bromide 10 MG/ML (10ML VIAL) ONE (14:55)
[2019-06-01] MEDS ORDERED: Cyclobenzaprine 10 MG TAB PO PRN (16:05)
--- NOTE | 2019-06-01 16:10 | OP ---
DATE OF PROCEDURE: 06/01/2019 SALES TEAM MEMBER SURGEON: None. PROCEDURES PERFORMED: 1. Esophagogastroduodenoscopy, diagnostic. 2. Endoscopic retrograde cholangiopancreatography with extension of sphincterotomy and balloon sweep of common bile duct. INDICATION: Epigastric/right upper quadrant pain, with a prior history of choledocholithiasis, and imaging demonstrating dilation of common bile duct to 1 cm. MEDICATIONS: 1. See Anesthesia record. 2. Indomethacin 100 mg per rectum. FINDINGS: After discussion of the risks, benefits, and alternatives of the procedure, informed consent was obtained and witnessed. Pre-endoscopic cardiopulmonary examination was satisfactory. Time-out was performed before sedation was achieved. Sedation was achieved with Anesthesia assistance in the endoscopy unit. With the patient under general anesthesia, she was placed in a semi-prone position. 100 mg of rectal indomethacin was administered as prophylaxis against post ERCP pancreatitis. A Pentax adult upper endoscope was placed into the oropharynx and passed through the cricopharyngeus under direct visualization. The esophageal mucosa appeared normal throughout with a normal-appearing Z-line. The endoscope was advanced into the stomach. Forward and retroflexed views of the entire gastric mucosa were obtained. The patient has postoperative gastric sleeve anatomy with characteristic narrowing of the lumen in the gastric fundus. The suture line looks good. The gastric mucosa appears normal. There is some retained food matter within the proximal stomach. The endoscope was advanced through the pylorus and into the first and second portions of the duodenum, which appeared normal. The upper endoscope was completely withdrawn. A Pentax adult side-viewing duodenoscope was introduced into the mouth and passed beyond the esophagus and stomach and into the second portion of the duodenum. The ampulla was brought into view with the endoscope in the short position. There is evidence of a prior biliary sphincterotomy with the sphincterotomy site quite eccentric and almost superior to the bulk of the ampulla itself. I was able to easily cannulate the common bile duct through the prior sphincterotomy site. There was noted to be free flow of bile even prior to cannulation. The wire was passed up into the right intrahepatic system. Cholangiogram was then performed. This does demonstrate some mild dilation of the common bile duct all the way up to the level of the bifurcation, but no clear filling defects were noted on cholangiogram. The patient is post cholecystectomy. I did perform an extension of the sphincterotomy several more millimeters and this was uncomplicated with good result. I then made several passes with the balloon through the common bile duct and across the ampulla. We used a 12 to 15 mm balloon and multiple passes were made with a balloon partially and fully inflated. The 15 mm balloon passed easily through the ampullary area. The balloon sweeps were clear. There was no evidence of any sludge or any stones. Occlusion cholangiogram demonstrated no filling defects. One final balloon sweep was made to sweep out excess contrast. The working apparatus was then completely withdrawn and the endoscope completely withdrawn suctioning out excess air and fluid. The procedure was completed. The patient tolerated the procedure well. There were no immediate postprocedure complications. IMPRESSION: 1. Some retained food in this proximal stomach. 2. Otherwise normal post gastric sleeve anatomy. 3. Otherwise normal esophagogastroduodenoscopy. 4. Mild dilation of the common bile duct, with no filling defects noted on cholangiogram. 5. Successful extension of biliary sphincterotomy and clear balloon sweep of common bile duct, with negative occlusion cholangiogram. RECOMMENDATION: 1. Advance diet as tolerated. 2. Continue with symptomatic care. Follow clinically. Job ID: [id number]
[2019-06-01] MEDS ORDERED: Cyclobenzaprine 10 MG TAB PO SCH (16:15)
[2019-06-01] MEDS: Ondansetron PF 4 MG/2 ML Vial IVP PRN (19:19)
--- NOTE | 2019-06-01 23:13 | RAD ---
Small bowel follow-through HISTORY: Abdominal pain. Obstruction. FINDINGS: Oral contrast was administered. Large amount of gastroesophageal reflux. Markedly dilated small bowel loops are present throughout the abdomen. At 4 hours, contrast has still not reached the right colon. Large amount stool is apparent throughout the colon on the central supply technician supervisor image. IMPRESSION: Incomplete small bowel transit at 4 hours. Suggestive of high grade distal small bowel ob struction. The stool within the colon would suggest that the obstruction is hyperacute or intermittent.
[2019-06-01] MEDS: Metoclopramide HCl 10 MG/2 ML VIAL IVP SCH (23:56)
[2019-06-02] MEDS: Sodium Chloride 0.9% 1,000 ML IV SCH ×3 (07:20→22:11)
[2019-06-02] MEDS ORDERED: Benzocaine 20% Spray 60 ML CAN PO PRN (07:28)
[2019-06-02] MEDS ORDERED: Sodium Chloride 0.9% 1,000 ML IV SCH ×2 (07:30→10:45)
[2019-06-02] MEDS: Levothyroxine Sodium 112 MCG TAB PO SCH (07:55)
[2019-06-02] MEDS: Levothyroxine Sodium 25 MCG TAB PO SCH (07:55)
--- NOTE | 2019-06-02 08:00 | PRG ---
DATE OF SERVICE: 06/02/2019 The patient has had a very rough night. She has been vomiting all night bilious fluid. She reports having had 2 C-sections in the past. She has passed a little bit of flatus, but no bowel movement. She reports having had a colonoscopy about 3 years ago. On examination, temperature is 99, pulse 90, and blood pressure 109/63. She is very uncomfortable. She is awake and alert. She has had 1200 out of emesis. Her abdomen is distended. Rare bowel sounds. Her white count is 10, H and H are 16 and 50, and platelet count 273. Electrolytes, just elevated glucose. She had a small bowel follow-through last night that shows what appears to be a small bowel obstruction distally, but there is a lot of stool in her right colon. ASSESSMENT: Possible mechanical versus functional small bowel obstruction, possibly related to impacted right colon versus adhesions. PLAN: NG suction. IV hydration. If she does not respond, recommend laparotomy. Job ID: [id number]
[2019-06-02] MEDS: Pantoprazole 40 MG VIAL IVP SCH ×2 (08:25→20:53)
--- NOTE | 2019-06-02 08:37 | RAD ---
PORTABLE SUPINE KUB: Date: 06/02/2019 COMPARISON: Small bowel follow-through 06/01/2019. HISTORY: Follow-up small bowel follow-through exams. FINDINGS: A supine KUB is provided. Supine nature of the film limits assessment for free intraperitoneal air an d small bowel obstruction. In addition, the upper abdomen is not fully imaged. This study demonstrate s extensive dilated small bowel throughout the imaged abdomen/pelvis which continues to contain contr ast media. IMPRESSION: Persistent, dilated small bowel throughout the abdomen/pelvis, which continues to contain contrast me robert consistent with a high grade small bowel obstruction. POS: TPC
[2019-06-02] MEDS ORDERED: Lidocaine 2% 11 ML SYR FS SCH (10:00)
[2019-06-02] MEDS: Lorazepam 2 MG/ML VIAL ONE (10:25)
[2019-06-02] MEDS ORDERED: Lorazepam 2 MG/ML VIAL SLOW IVP PRN (10:37)
[2019-06-02 13:10] LABS: INR-International Normal Ratio 1.2; PTT 26.7 SEC (22.9-36.1); Prothrombin Time 14.8 SEC (12.0-14.7)
[2019-06-02 13:29] LABS: ALT (SGPT) 421 U/L (8-55); AST (SGOT) 268 U/L (5-34); Albumin 3.9 g/dL (3.5-5.0); Alkaline Phosphatase 197 U/L (40-110); Anion Gap 11 mmol/L (10-20); BUN (Urea Nitrogen) 15 mg/dL (9.8-20.1); Bilirubin, Total 1.3 mg/dL (0.2-1.2); Calc. Creatinine Clearance 124 mL/min (70-130); Calcium 9.5 mg/dL (7.8-10.44); Carbon Dioxide 30 mmol/L (22-29); Chloride 104 mmol/L (98-107); Cholesterol 154 mg/dl (< 200 Desired); Estimated GFR-MDRD 81; Globulin 2.6 g/dL (2.4-3.5); Glucose 108 mg/dL (70-105); HDL Cholesterol 51 mg/dL (>60 Neg Risk); LDL Cholesterol, Calculated 81 mg/dL; Magnesium 1.8 mg/dL (1.6-2.6); Phosphorus 3.2 mg/dL (2.3-4.7); Potassium 4.1 mmol/L (3.5-5.1); Protein, Total 6.5 g/dL (6.0-8.3); Sodium 141 mmol/L (136-145); Triglycerides 108 mg/dL (Less than 150)
--- NOTE | 2019-06-02 15:20 | PDOC.HOSPP ---
- Subjective Encounter Date: 06/02/19 Encounter Time: 10:00 Subjective: pt up in bed is very uncomfortable with ng tube. - Objective Vital Signs & Weight: Vital Signs (12 hours) Temp Pulse Resp BP Pulse Ox 06/02/19 14:24 98.2 F 102 H 16 127/79 94 L 06/02/19 11:32 97.8 F 105 H 16 143/86 H 95 06/02/19 08:29 98.1 F 102 H 18 116/73 93 L 06/02/19 05:00 99.0 F 90 18 109/63 94 L Weight Admit Weight 201 lb 9.6 oz Weight 201 lb 9.6 oz I&O: 06/01/19 06/02/19 06/03/19 06:59 06:59 06:59 Intake Total 1550 1144 Output Total 800 400 Balance 750 744 Result Diagrams: 06/01/19 05:19 06/02/19 12:43 Additional Labs: Accuchecks 06/02/19 06/02/19 06/01/19 11:38 04:46 19:40 POC Glucose 111 H 162 H 139 H 06/01/19 15:34 POC Glucose 153 H Hospitalist ROS - Review of Systems Cardiovascular: denies: chest pain, palpitations, orthopnea, paroxysmal noc. dyspnea, edema, light headedness, other Gastrointestinal: reports: nausea, abdominal pain. denies: vomiting, diarrhea, constipation, melena, hematochezia, other Genitourinary: denies: dysuria, frequency, incontinence, hematuria, retention, other - Medication Medications: Active Medications Generic Name Dose Route Start Last Admin Trade Name Irlanda PRN Reason Stop Dose Admin Acetaminophen 1,000 mg 05/30/19 17:25 05/31/19 14:11 Tylenol PO 1,000 mg Q6H PRN Administration Mild Pain (1-3) Cholecalciferol 2,000 units 05/31/19 21:00 06/02/19 07:56 Vitamin D3 PO Not Given BID LANI Sodium Chloride 1,000 mls @ 125 mls/hr 05/30/19 17:30 06/02/19 07:20 Normal Saline 0.9% IV 1,000 mls .Q8H LANI Administration Promethazine HCl 25 mg/ Sodium 51 mls @ 204 mls/hr 05/31/19 19:09 05/31/19 20 :41 Chloride IVPB 51 mls Q6H PRN Administration Nausea/Vomiting Levothyroxine Sodium 112 mcg 06/01/19 06:00 06/02/19 07:55 Synthroid PO Not Given 0600 [facility] Levothyroxine Sodium 25 mcg 06/01/19 06:00 06/02/19 07:55 Synthroid PO Not Given 0600 LANI Metoclopramide HCl 10 mg 06/01/19 23:45 06/01/19 23:56 Reglan IVP 06/02/19 23:46 10 mg NOW LANI Administration Morphine Sulfate 4 mg 05/30/19 17:29 06/01/19 23:59 Morphine SLOW IVP 4 mg Q4H PRN Administration Moderate to Severe Pain (6-10) Ondansetron HCl 4 mg 05/30/19 17:25 05/31/19 11:43 Zofran Odt PO 4 mg Q6H PRN Administration Nausea/Vomiting Ondansetron HCl 8 mg 05/30/19 17:25 06/01/19 19:19 Zofran IVP 8 mg Q6H PRN Administration Nausea/Vomiting Pantoprazole Sodium 40 mg 05/31/19 21:00 06/02/19 08:25 Protonix IVP 40 mg Q12HR LANI Administration Promethazine HCl 25 mg 05/30/19 17:25 06/01/19 21:07 Phenergan IM/IV 25 mg Q6H PRN Administration Nausea/Vomiting - Exam Heart: negative: RRR, no murmur, no gallops, no rubs, normal peripheral pulses, irregular, diminshed peripheral pulses, murmur present, II/IV, III/IV Respiratory: negative: CTAB, no wheezes, no rales, no ronchi, normal chest expansion, no tachypnea, normal percussion, rales, rhonchi, tachypneic, wheezes Gastrointestinal: soft, normal bowel sounds Hosp A/P (1) Abdominal pain Code(s): R10.9 - UNSPECIFIED ABDOMINAL PAIN Status: Acute Qualifiers: Abdominal location: epigastric Qualified Code(s): R10.13 - Epigastric pain (2) Ileus Code(s): K56.7 - ILEUS, UNSPECIFIED Status: Acute (3) DM II (diabetes mellitus, type II), controlled Code(s): E11.9 - TYPE 2 DIABETES MELLITUS WITHOUT COMPLICATIONS Status: Chronic (4) Hypothyroid Code(s): E03.9 - HYPOTHYROIDISM, UNSPECIFIED Status: Chronic (5) Rectocele Code(s): N81.6 - RECTOCELE Status: Acute - Plan spoke with Dr Sanchez who wanted to watch her tonight and was hoping that she will have a bowl movement. He will not take her for surgery today. she has her ng tube. I have encouraged her to ambulate.
--- NOTE | 2019-06-02 15:42 | SPC ---
Ultrasound and Fluoroscopic guided left upper extremity PICC placement HISTORY: Small bowel obstruction. Patient needs TPN. FINDINGS: Informed consent obtained prior to the procedure. An appropriate access site was determined with ultrasound guidance. The area was then meticulously pr epped and draped in usual sterile fashion. Skin overlying the left basilic vein anesthetized with 1% buffered lidocaine. Utilizing direct sonogr aphic guidance, vascular access is obtained via the left basilic vein, and an 0.018in guidewire was advanced to the distal SVC. Intravascular length is calculated at 39 cm, and the PICC is cut accordin gly. Needle is removed and replaced with a peel-away sheath. The PICC was advanced over the wire. Wire and peel-away sheath were removed. The tip of the catheter overlies the SVC. The catheter was accessed and aspirated/flushed easily. Exposure data: 0.2 minutes of fluoroscopic time 921 mGy centimeter squared FINDINGS: Technically successful placement of a 39 centimeter single lumen 5 [place] left upper extremity PICC l ine. IMPRESSION: Successful ultrasound guided placement of a left upper extremity PICC.
[2019-06-02] MEDS: Acetaminophen 500 MG TAB PO PRN (17:36)
[2019-06-02] MEDS ORDERED: Acetaminophen 650 MG Suppository PR PRN (17:58)
--- NOTE | 2019-06-02 18:19 | PRG ---
DATE OF SERVICE: 06/02/2019 SUBJECTIVE: Ms. Lima had multiple episodes of vomiting last night. She had a small bowel x-ray of that showed bowel obstruction. Large amount of stool was noted throughout the colon. She had an NG tube placed to suction, has had several pockets of NG aspirate filled today and her abdominal pain is currently resolved. She has some soreness in her throat from the NG tube. OBJECTIVE: VITAL SIGNS: Temperature 100.1, pulse 98, blood pressure 123/72. GENERAL: She is in no acute distress. Alert and oriented x3. LUNGS: Clear to auscultation bilaterally. HEART: Regular rate and rhythm without murmur. ABDOMEN: Soft, nontender, and nondistended. Bowel sounds are hypoactive. EXTREMITIES: No lower extremity edema. LABORATORY DATA: White blood cell count is 10.3, hemoglobin 6.6, and platelets 273 that was from yesterday. This afternoon; her bilirubin was 1.3, AST 268, ALT 421, alkaline phosphatase 197, and albumin 3.9. IMPRESSION: 1. Small bowel obstruction. She did finally declare herself with the small-bowel distention and vomiting and a small bowel x-ray that showed obstruction. She is now feeling better after NG tube placement and aspiration. Small bowel obstruction could be due to adhesions from multiple prior surgeries. She is also noted to have stool throughout the colon. 2. Abnormal liver tests. Her bile duct is cleared by endoscopic retrograde cholangiopancreatography. Sphincterotomy and balloon sweep confirms the duct to be clear. Her LFTs are higher today, which could be related to having injected the bile duct or potentially a blood clot in the bile duct or less likely mild ischemic injury from dehydration. Given that her creatinine is normal, I would move that lower on the list likely had. RECOMMENDATIONS: 1. We will follow the trend of her NG tube output. If this remains high, then she will likely require surgical intervention. 2. We will follow the trend of her liver tests. 3. She did report having normal bowel movements prior to admission. However, x-ray shows stool throughout the colon. Depending on clinical course, enema might be helpful. the GI. 4. Dr. Perkins will cover the weekend. Job ID: [id number]
[2019-06-02] MEDS ORDERED: Multivitamins, Adult 10 ML, Multitrace-5 5 ML, Fat Emulsion 250 ML in D15W-AA 5% with L... IV SCH (22:00)
[2019-06-03] MEDS: Metoclopramide HCl 10 MG/2 ML VIAL IVP SCH (00:23)
[2019-06-03 06:04] LABS: #Eosinphils 0.1 thou/uL (0.0-0.7); #Lymphocytes 0.9 thou/uL (1.20-3.40); #Monocytes 0.8 thou/uL (0.11-0.59); #Neutrophils 5.1 thou/uL (1.40-6.50); %Basophils 0.1 % (0.0-1.0); %Monocytes 11.6 % (0.0-10.0); %Neutrophils 73.3 % (42.0-75.0); Hemoglobin 14.1 g/dL (12.0-16.0); Mean Corpuscular HGB CONC 34.2 g/dL (32.0-36.0); Mean Corpuscular Hemoglobin 33.3 pg (27.0-31.0); Mean Corpuscular Volume 97.2 fL (78.0-98.0); Mean Platelet Volume 7.3 fL (7.4-10.4); Platelet Count 171 thou/uL (130-400); RBC Distribution Width 11.4 % (11.5-14.5); Red Blood Cell (RBC) Count 4.25 mill/uL (4.20-5.40)
[2019-06-03] MEDS: Levothyroxine Sodium 112 MCG TAB PO SCH (06:15)
[2019-06-03] MEDS: Levothyroxine Sodium 25 MCG TAB PO SCH (06:16)
[2019-06-03 06:28] LABS: Anion Gap 12 mmol/L (10-20); BUN (Urea Nitrogen) 18 mg/dL (9.8-20.1); Calc. Creatinine Clearance 147 mL/min (70-130); Calcium 8.5 mg/dL (7.8-10.44); Carbon Dioxide 24 mmol/L (22-29); Chloride 107 mmol/L (98-107); Estimated GFR-MDRD Greater than 90; Glucose 155 mg/dL (70-105); Potassium 3.4 mmol/L (3.5-5.1); Sodium 140 mmol/L (136-145)
[2019-06-03] MEDS: Pantoprazole 40 MG VIAL IVP SCH ×2 (07:46→21:12)
[2019-06-03] MEDS ORDERED: Potassium Chloride 10 MEQ in Premix Bag 1 BAG IVPB SCH (09:00)
--- NOTE | 2019-06-03 09:21 | RAD ---
KUB: 06/03/2019 COMPARISON: 06/02/2019 HISTORY: Small bowel obstruction FINDINGS: The prior examination demonstrated contrast media within numerous dilated loops of small son wel. On this examination, the contrast media has passed through the small bowel with some contrast media now seen within the right colon. Stable nasogastric tube. Scattered postoperative clips are see n within the upper abdomen. Supine nature of the film limits assessment for bowel obstruction and free intraperitoneal air. IMPRESSION: Interval passing of contrast media from small bowel to colon.
[2019-06-03] MEDS ORDERED: Mineral Oil PER 1 ML PER TUBE SCH (09:36)
[2019-06-03] MEDS ORDERED: GoLYTELY 4,000 ml Bottle PO SCH ×2 (09:45→21:30)
--- NOTE | 2019-06-03 09:52 | PRG ---
DATE OF SERVICE: 06/03/2019 SUBJECTIVE: The patient is feeling much better. Her abdominal pain is gone. She is passing flatus. She complains primarily of NG tube discomfort. OBJECTIVE: VITAL SIGNS: Her temperature is 98.2, pulse is 90, blood pressure is 108/72. GENERAL: She looks better. ABDOMEN: Her abdomen is soft, nontender. IMAGING STUDIES: KUB shows that all the contrast is in her colon, but her colon is full of fecal material. ASSESSMENT: Impacted colon. PLAN: We will give mineral oil per NG, then follow that with Sybil. Job ID: [id number]
--- NOTE | 2019-06-03 15:16 | PDOC.HOSPP ---
- Subjective Encounter Date: 06/03/19 Encounter Time: 10:15 Subjective: pt up in bed complains of abdomen distention. - Objective Vital Signs & Weight: Vital Signs (12 hours) Temp Pulse Resp BP Pulse Ox 06/03/19 11:55 98.4 F 97 18 116/71 94 L 06/03/19 08:17 97 06/03/19 07:34 98.2 F 90 18 108/72 97 06/03/19 04:51 98.6 F 91 12 107/70 94 L Weight Admit Weight 201 lb 9.6 oz Weight 201 lb 9.6 oz I&O: 06/02/19 06/03/19 06/04/19 06:59 06:59 06:59 Intake Total 1144 4165 Output Total 400 3800 Balance 744 365 Result Diagrams: 06/03/19 05:22 06/03/19 05:22 Additional Labs: Accuchecks 06/03/19 06/03/19 06/02/19 11:39 04:26 20:03 POC Glucose 143 H 148 H 98 06/02/19 16:24 POC Glucose 83 Hospitalist ROS - Review of Systems Respiratory: denies: cough, dry, shortness of breath, hemoptysis, SOB with excertion, pleuritic pain, sputum, wheezing, other Gastrointestinal: reports: abdominal pain Genitourinary: denies: dysuria, frequency, incontinence, hematuria, retention, other Musculoskeletal: denies: neck pain, shoulder pain, arm pain, back pain, hand pain, leg pain, foot pain, other - Medication Medications: Active Medications Generic Name Dose Route Start Last Admin Trade Name Kevinq PRN Reason Stop Dose Admin Acetaminophen 1,000 mg 05/30/19 17:25 05/31/19 14:11 Tylenol PO 1,000 mg Q6H PRN Administration Mild Pain (1-3) Acetaminophen 650 mg 06/02/19 17:58 06/02/19 18:30 Tylenol RI 650 mg Q6H PRN Administration Fever or Pain Cholecalciferol 2,000 units 05/31/19 21:00 06/03/19 07:00 Vitamin D3 PO Not Given BID LANI Sodium Chloride 1,000 mls @ 31 mls/hr 05/30/19 17:30 06/02/19 22:11 Normal Saline 0.9% IV 1,000 mls .Q24H LANI Administration Promethazine HCl 25 mg/ Sodium 51 mls @ 204 mls/hr 05/31/19 19:09 05/31/19 20 :41 Chloride IVPB 51 mls Q6H PRN Administration Nausea/Vomiting Multivitamins 10 ml/ Chromium/ 2,265 mls @ 94.375 mls/hr 06/02/19 22:00 06/02 22:12 Copper/Manganese/Seleni/Zn 5 IV 06/03/19 21:59 2,265 mls ml/ Fat Emulsion Intravenous 2200 LANI Administration 250 ml/ Amino Acids/ Electrolytes Levothyroxine Sodium 112 mcg 06/01/19 06:00 06/03/19 06:15 Synthroid PO Not Given [facility] Levothyroxine Sodium 25 mcg 06/01/19 06:00 06/03/19 06:16 Synthroid PO Not Given [facility] Morphine Sulfate 4 mg 05/30/19 17:29 06/01/19 23:59 Morphine SLOW IVP 4 mg Q4H PRN Administration Moderate to Severe Pain (6-10) Ondansetron HCl 4 mg 05/30/19 17:25 05/31/19 11:43 Zofran Odt PO 4 mg Q6H PRN Administration Nausea/Vomiting Ondansetron HCl 8 mg 05/30/19 17:25 06/01/19 19:19 Zofran IVP 8 mg Q6H PRN Administration Nausea/Vomiting Pantoprazole Sodium 40 mg 05/31/19 21:00 06/03/19 07:46 Protonix IVP 40 mg Q12HR LANI Administration Promethazine HCl 25 mg 05/30/19 17:25 06/01/19 21:07 Phenergan IM/IV 25 mg Q6H PRN Administration Nausea/Vomiting - Exam Neck: negative: supple, symmetric, no JVD, no thyromegaly, no lymphadenopathy, no carotid bruit, JVD Heart: negative: RRR, no murmur, no gallops, no rubs, normal peripheral pulses, irregular, diminshed peripheral pulses, murmur present, II/IV, III/IV Respiratory: negative: CTAB, no wheezes, no rales, no ronchi, normal chest expansion, no tachypnea, normal percussion, rales, rhonchi, tachypneic, wheezes Gastrointestinal: normal bowel sounds, tender to palpation, distended Hosp A/P (1) Abdominal pain Code(s): R10.9 - UNSPECIFIED ABDOMINAL PAIN Status: Acute Qualifiers: Abdominal location: epigastric Qualified Code(s): R10.13 - Epigastric pain (2) Ileus Code(s): K56.7 - ILEUS, UNSPECIFIED Status: Acute (3) DM II (diabetes mellitus, type II), controlled Code(s): E11.9 - TYPE 2 DIABETES MELLITUS WITHOUT COMPLICATIONS Status: Chronic (4) Hypothyroid Code(s): E03.9 - HYPOTHYROIDISM, UNSPECIFIED Status: Chronic (5) Rectocele Code(s): N81.6 - RECTOCELE Status: Acute - Plan spoke with Dr Sanchez who wanted to watch her tonight and was hoping that she will have a bowl movement. He will not take her for surgery today. she has her ng tube. I have encouraged her to ambulate. 06/03 pt has been passing flatus, she has been started on golytely. will check phos and mag in am. will replace K.
[2019-06-03] MEDS ORDERED: Fleet Enema 133 ML BOT PR SCH (15:30)
--- NOTE | 2019-06-03 18:03 | PRG ---
DATE OF SERVICE: 06/03/2019 SUBJECTIVE: This afternoon, Ms. Lima has finished about 700 mL of the GoLYTELY through nasogastric tube. She is starting to feel a bit bloated again, but no nausea or vomiting. She had a couple of small bowel movements, but those had to be induced with enemas. Abdominal discomfort is significantly improved however. OBJECTIVE: VITAL SIGNS: Temperature 98.4, pulse 97, blood pressure 116/71, and 94% oxygen saturation on room air. GENERAL: No acute distress. HEART: Regular rate and rhythm. LUNGS: Clear to auscultation bilaterally. ABDOMEN: Bowel sounds are absent, but the abdomen is soft with minimal tenderness to palpation throughout. EXTREMITIES: No peripheral edema. LABORATORY STUDIES: WBC 7.0, hemoglobin 14.1, and platelets 171. INR 1.2. Sodium 140, potassium 3.4, BUN 18, creatinine 0.63, and glucose 132. ASSESSMENT AND PLAN: 1. Severe constipation with impacted colon and small bowel obstructive physiology. 2. Abdominal pain, secondary to severe constipation with impacted colon and small bowel obstructive physiology, improved. I appreciate Dr. Sanchez's assistance. I agree with his plan for administering GoLYTELY today. I have asked the patient to finish out 1 L of the GoLYTELY, and we will await further results. Advised the nurses if the patient gets significant nausea or vomiting to back off on the GoLYTELY. Hopefully, when she has good results with this, the pain will be completely resolved. Nothing further from a GI perspective today. Job ID: [id number]
[2019-06-03] MEDS: Sodium Acetate 2 mEq/ml 40 MEQ, Sodium Chloride 30 MEQ, Potassium Chloride 20 MEQ, Pota... IV SCH (22:50)
[2019-06-03] MEDS: Sodium Chloride 0.9% 1,000 ML IV SCH (22:51)
[2019-06-04 06:52] LABS: Magnesium 1.6 mg/dL (1.6-2.6); Phosphorus 3.6 mg/dL (2.3-4.7)
[2019-06-04] MEDS ORDERED: GoLYTELY 4,000 ml Bottle PO SCH (08:00)
--- NOTE | 2019-06-04 08:40 | PRG ---
DATE OF SERVICE: 06/04/2019 SUBJECTIVE: The patient is feeling somewhat better. She has had few small bowel movements. She is passing flatus. She has a little bit a right-sided abdominal pain, but it is much improved. No nausea or vomiting. OBJECTIVE: VITAL SIGNS: On exam, her temperature is 98.9, pulse 83, and blood pressure 122/73. GENERAL: She looks more comfortable. ABDOMEN: Soft, nondistended, and nontender. She does have a little bit of swelling of the left arm, which is where the PICC line is. She is somehow not on Lovenox. ASSESSMENT: High fecal impaction, resolving. PLAN: 1. Venous ultrasound. 2. Lovenox. 3. We will give her some more GoLYTELY. She wants 1 L per NG. We will discontinue the NG after that liter. Second liter, she will take p.o. Start clear liquid diet. Discontinue NG after the 1 L of GoLYTELY. Continue to ambulate. Lovenox. Job ID: [id number]
--- NOTE | 2019-06-04 08:57 | ULT ---
Left upper extremity venous Doppler ultrasound: 06/04/2019 COMPARISON: None HISTORY: Left upper extremity redness and swelling, edema, assess for DVT TECHNIQUE: Multiplanar grayscale sonographic imaging of the venous structures of the left upper extre mity obtained with color flow and spectral analysis FINDINGS: Left internal jugular vein, subclavian vein, and axillary vein appear patent. Left upper ex tremity PICC noted. The mid portion of the brachial vein could not be visualized secondary to bandaging associated with the left upper extremity PICC. Imaged portions of the brachial vein appear patent. The basilic vein, radial vein, and ulnar vein appear patent as well. There is superficial venous thrombosis involving the left cephalic vein in the antecubital fossa david on. IMPRESSION: Superficial venous thrombosis of the left cephalic vein. No evidence for deep venous thro mbosis. A portion of the mid left brachial vein could not be assessed secondary to bandaging.
[2019-06-04] MEDS: Levothyroxine Sodium 25 MCG TAB PO SCH (09:00)
[2019-06-04] MEDS: Levothyroxine Sodium 112 MCG TAB PO SCH (09:00)
[2019-06-04] MEDS: Pantoprazole 40 MG VIAL IVP SCH ×2 (09:03→19:34)
[2019-06-04] MEDS: Enoxaparin Sodium 40 MG/0.4 ML SYRINGE SC SCH (09:03)
--- NOTE | 2019-06-04 09:47 | RAD ---
EXAM: XR Abdomen 1 View/KUB PROVIDED CLINICAL HISTORY: Small bowel obstruction COMPARISON: 06/03/2019 FINDINGS: Contrast material is again noted within colon. Gas-filled dilated loops of small bowel are noted, aretha suring up to 5.5 cm. Multiple surgical clips overlying the abdomen. Enteric catheter is again seen in similar position. The supine nature of the examination is not sensitive for detection of pneumoper itoneum. IMPRESSION: Gas-filled loops of dilated small bowel suggest ileus or obstruction.
--- NOTE | 2019-06-04 12:08 | PRG ---
DATE OF SERVICE: 06/04/2019 SUBJECTIVE: Ms. Lima is feeling a bit better today. She has gotten 2 L of GoLYTELY down. Nasogastric tube was removed. Abdominal pain is much improved. She still has some right-sided discomfort and generalized bloating. She has had a couple of smaller bowel movements, awaiting more results from the GoLYTELY. She is not nauseated. OBJECTIVE: VITAL SIGNS: Temperature 98.9, pulse 83, blood pressure 122/73, and 91% oxygen saturation on room air. GENERAL: No acute distress. HEART: Regular rate and rhythm. LUNGS: Clear to auscultation bilaterally. ABDOMEN: Bowel sounds are hypoactive, but present in all 4 quadrants. The abdomen is soft. There is some tenderness to palpation in the right side, but no guarding or rebound tenderness. EXTREMITIES: No peripheral edema. LABORATORY STUDIES: Glucose 135, phosphorus 3.6, and magnesium 1.6. No other new labs today. IMAGING STUDIES: Abdominal x-ray from this morning demonstrates some persistent dilation of small bowel with gas-filled loops measuring up to 5.5 cm. ASSESSMENT AND PLAN: 1. High fecal impaction, with obstructive physiology, appears to be slowly resolving. 2. Abdominal pain, improved. I advised the patient to finish up her second liter of GoLYTELY and started clear liquids. As long as she is not nauseated, she can continue to sip on the GoLYTELY, take it slowly as tolerated. Hopefully, we will be seeing more stool results with this. Once she is over this acute presentation, she can follow up with Dr. George. She may need more aggressive chronic constipation management such as Linantonio or Dhruv. Job ID: [id number]
--- NOTE | 2019-06-04 14:39 | PDOC.HOSPP ---
- Subjective Encounter Date: 06/04/19 Encounter Time: 10:30 Subjective: pt up in bed has been having some bowl movements. - Objective Vital Signs & Weight: Vital Signs (12 hours) Temp Pulse Resp BP Pulse Ox 06/04/19 11:00 99.0 F 81 16 121/76 93 L Weight Admit Weight 201 lb 9.6 oz Weight 201 lb 9.6 oz I&O: 06/03/19 06/04/19 06/05/19 06:59 06:59 06:59 Intake Total 4165 3170 Output Total 3800 20 Balance 365 3150 Result Diagrams: 06/03/19 05:22 06/03/19 05:22 Additional Labs: Accuchecks 06/04/19 06/04/19 06/03/19 11:55 04:40 20:00 POC Glucose 128 H 135 H 138 H 06/03/19 17:22 POC Glucose 132 H Hospitalist ROS - Review of Systems Cardiovascular: denies: chest pain, palpitations, orthopnea, paroxysmal noc. dyspnea, edema, light headedness, other Gastrointestinal: denies: nausea, vomiting, abdominal pain, diarrhea, constipation, melena, hematochezia, other Genitourinary: denies: dysuria, frequency, incontinence, hematuria, retention, other - Medication Medications: Active Medications Generic Name Dose Route Start Last Admin Trade Name Freq PRN Reason Stop Dose Admin Acetaminophen 1,000 mg 05/30/19 17:25 05/31/19 14:11 Tylenol PO 1,000 mg Q6H PRN Administration Mild Pain (1-3) Acetaminophen 650 mg 06/02/19 17:58 06/02/19 18:30 Tylenol NV 650 mg Q6H PRN Administration Fever or Pain Cholecalciferol 2,000 units 05/31/19 21:00 06/04/19 09:00 Vitamin D3 PO Not Given BID LANI Enoxaparin Sodium 40 mg 06/04/19 09:00 06/04/19 09:03 Lovenox SC 40 mg 0900 [facility] Administration Sodium Chloride 1,000 mls @ 31 mls/hr 05/30/19 17:30 06/03/19 22:51 Normal Saline 0.9% IV 1,000 mls .Q24H LANI Administration Promethazine HCl 25 mg/ Sodium 51 mls @ 204 mls/hr 05/31/19 19:09 05/31/19 20 :41 Chloride IVPB 51 mls Q6H PRN Administration Nausea/Vomiting Sodium Acetate 40 meq/ Sodium 1,846.7021 mls @ 76.946 mls/hr 06/03/19 22:00 06/03/19 22:50 Chloride 30 meq/ Potassium IV 1,846.7021 mls Chloride 20 meq/ Potassium 2200 LANI Administration Phosphate 30 mmol/ Calcium Gluconate 10 meq/ Magnesium Sulfate 10 meq/ Multivitamins 10 ml/ Chromium/Copper/ Manganese/Seleni/Zn 5 ml/ Amino Acids/Dextrose/ Fat Emulsion Intravenous Levothyroxine Sodium 112 mcg 06/01/19 06:00 06/04/19 09:00 Synthroid PO Not Given 0600 [facility] Levothyroxine Sodium 25 mcg 06/01/19 06:00 06/04/19 09:00 Synthroid PO Not Given 0600 [facility] Morphine Sulfate 4 mg 05/30/19 17:29 06/01/19 23:59 Morphine SLOW IVP 4 mg Q4H PRN Administration Moderate to Severe Pain (6-10) Ondansetron HCl 4 mg 05/30/19 17:25 05/31/19 11:43 Zofran Odt PO 4 mg Q6H PRN Administration Nausea/Vomiting Ondansetron HCl 8 mg 05/30/19 17:25 06/01/19 19:19 Zofran IVP 8 mg Q6H PRN Administration Nausea/Vomiting Pantoprazole Sodium 40 mg 05/31/19 21:00 06/04/19 09:03 Protonix IVP 40 mg Q12HR [facility] Administration Polyethylene Glycol/Electrolytes 2,000 ml 06/04/19 08:00 06/04/19 09:26 Golytely PO 06/04/19 23:59 2,000 ml ASDIR [facility] Administration Promethazine HCl 25 mg 05/30/19 17:25 06/01/19 21:07 Phenergan IM/IV 25 mg Q6H PRN Administration Nausea/Vomiting - Exam Neck: negative: supple, symmetric, no JVD, no thyromegaly, no lymphadenopathy, no carotid bruit, JVD Heart: negative: RRR, no murmur, no gallops, no rubs, normal peripheral pulses, irregular, diminshed peripheral pulses, murmur present, II/IV, III/IV Gastrointestinal: normal bowel sounds, distended Gastrointestinal - other findings: right mid abdomen scar Hosp A/P (1) Abdominal pain Code(s): R10.9 - UNSPECIFIED ABDOMINAL PAIN Status: Acute Qualifiers: Abdominal location: epigastric Qualified Code(s): R10.13 - Epigastric pain (2) Ileus Code(s): K56.7 - ILEUS, UNSPECIFIED Status: Acute (3) DM II (diabetes mellitus, type II), controlled Code(s): E11.9 - TYPE 2 DIABETES MELLITUS WITHOUT COMPLICATIONS Status: Chronic (4) Hypothyroid Code(s): E03.9 - HYPOTHYROIDISM, UNSPECIFIED Status: Chronic (5) Rectocele Code(s): N81.6 - RECTOCELE Status: Acute (6) Acute cephalic vein thrombosis Code(s): I82.619 - ACUTE EMBOLISM AND THROMBOSIS OF SUPERFIC VN UNSP UP EXTREM Status: Acute - Plan spoke with Dr Sanchez who wanted to watch her tonight and was hoping that she will have a bowl movement. He will not take her for surgery today. she has her ng tube. I have encouraged her to ambulate. 06/03 pt has been passing flatus, she has been started on golytely. will check phos and mag in am. will replace K. 06/04 pt has had 2-3 small bm. she is drinking another round of Golytely. she has a superficial cephalic vein dvt to her left arm no AC. pt has been ambulating.
[2019-06-04] MEDS: Ondansetron PF 4 MG/2 ML Vial IVP PRN (18:08)
[2019-06-04] MEDS ORDERED: Promethazine HCl 25 MG/ML VIAL IM PRN (19:30)
[2019-06-04] MEDS: Promethazine HCl 12.5 MG in Sodium Chloride 0.9% 50 ML IVPB PRN ×2 (19:43→21:42)
[2019-06-04] MEDS: Morphine 4 MG/ML VIAL SLOW IVP PRN (20:28)
[2019-06-04] MEDS: Sodium Chloride 0.9% 1,000 ML IV SCH (21:42)
[2019-06-04] MEDS: Sodium Acetate 2 mEq/ml 40 MEQ, Sodium Chloride 30 MEQ, Potassium Chloride 20 MEQ, Pota... IV SCH (22:28)
[2019-06-05] MEDS: Morphine 4 MG/ML VIAL SLOW IVP PRN ×2 (00:25→14:31)
[2019-06-05] MEDS: Hyoscyamine Sulfate SL 0.125 mg Tablet PO PRN ×2 (00:26→06:32)
[2019-06-05] MEDS: Promethazine HCl 12.5 MG in Sodium Chloride 0.9% 50 ML IVPB PRN ×2 (00:30→06:32)
[2019-06-05] MEDS ORDERED: Morphine 4 MG/ML VIAL SLOW IVP PRN ×2 (00:59→14:11)
[2019-06-05] MEDS: Ketorolac Tromethamine 30 MG/ML VIAL IVP PRN ×2 (01:57→10:23)
[2019-06-05] MEDS: Ondansetron PF 4 MG/2 ML Vial IVP PRN (01:57)
[2019-06-05 05:18] LABS: #Eosinphils 0.1 thou/uL (0.0-0.7); #Lymphocytes 1.7 thou/uL (1.20-3.40); #Monocytes 0.6 thou/uL (0.11-0.59); #Neutrophils 4.7 thou/uL (1.40-6.50); %Basophils 0.5 % (0.0-1.0); %Eosinophils 1.8 % (0.0-10.0); %Lymphocytes 23.8 % (21.0-51.0); %Monocytes 8.8 % (0.0-10.0); %Neutrophils 65.1 % (42.0-75.0); Hemoglobin 13.1 g/dL (12.0-16.0); Mean Corpuscular HGB CONC 35.1 g/dL (32.0-36.0); Mean Corpuscular Hemoglobin 34.4 pg (27.0-31.0); Mean Corpuscular Volume 97.9 fL (78.0-98.0); Mean Platelet Volume 7.4 fL (7.4-10.4); Platelet Count 154 thou/uL (130-400); Red Blood Cell (RBC) Count 3.79 mill/uL (4.20-5.40); White Blood Cell (WBC) Count 7.2 thou/uL (4.8-10.8)
[2019-06-05] MEDS: Levothyroxine Sodium 112 MCG TAB PO SCH (05:29)
[2019-06-05] MEDS: Levothyroxine Sodium 25 MCG TAB PO SCH (05:29)
[2019-06-05 05:51] LABS: Anion Gap 12 mmol/L (10-20); BUN (Urea Nitrogen) 11 mg/dL (9.8-20.1); Calc. Creatinine Clearance 163 mL/min (70-130); Calcium 8.6 mg/dL (7.8-10.44); Carbon Dioxide 26 mmol/L (22-29); Chloride 106 mmol/L (98-107); Estimated GFR-MDRD Greater than 90; Glucose 120 mg/dL (70-105); Potassium 3.9 mmol/L (3.5-5.1); Sodium 140 mmol/L (136-145)
--- NOTE | 2019-06-05 09:48 | RAD ---
Therapeutic Gastrografin enema: 06/05/2019 HISTORY: Abdominal pain, constipation FINDINGS: Student Assistance Counsel[employer] imaging demonstrates postsurgical clips in the upper abdomen. There is a suture line in the left upper quadrant. Student Assistance Counselor imaging demonstrates dilated bowel within the right lower quadrant and central abdomen suggesting dilated small bowel on the basis of small bowel obstruction. Single column Gastrografin enema was performed. Detailed assessment for mucosal lesion and mass lesio n suboptimal on single column Gastrografin enema. Contrast media is instilled in a retrograde fashion to the cecum. Contrast media would not reflux into the distal small bowel. On the spot imagin g during enema, dilated small bowel is seen in the central abdomen and right lower quadrant. IMPRESSION: Dilated small bowel concerning for small bowel obstruction. Contrast was instilled in a r etrograde fashion to the level of the cecum.
[2019-06-05] MEDS ORDERED: Rocuronium Bromide 10 MG/ML (10ML VIAL) ONE (09:52)
[2019-06-05] MEDS ORDERED: Lidocaine 1% PF 5 ML VIAL ONE (09:52)
[2019-06-05] MEDS ORDERED: Ondansetron PF 4 MG/2 ML Vial ONE (09:52)
[2019-06-05] MEDS ORDERED: Dexamethasone 20 MG/5 ML VIAL ONE (09:52)
[2019-06-05] MEDS ORDERED: PROPOFOL 200 MG/20 ML VIAL ONE (09:52)
[2019-06-05] MEDS: Pantoprazole 40 MG VIAL IVP SCH ×2 (09:57→21:29)
[2019-06-05] MEDS: Enoxaparin Sodium 40 MG/0.4 ML SYRINGE SC SCH (09:58)
--- NOTE | 2019-06-05 10:00 | PDOC.HOSPP ---
- Subjective Encounter Date: 06/05/19 Encounter Time: 12:20 Subjective: Patient seen in room as they are preparing to bring her down to OR. Persistent upper abdominal pain and bloating. Had many BMs yesterday with GoLytely but no improvement in symptoms. Repeat X-ray just now with persistent illeus. Dr. Sanchez taking to OR now. - Objective Vital Signs & Weight: Vital Signs (12 hours) Temp Pulse Resp BP Pulse Ox 06/05/19 08:03 98.7 F 89 18 148/89 H 95 06/04/19 23:44 98.1 F 81 20 130/78 94 L Weight Admit Weight 201 lb 9.6 oz Weight 201 lb 9.6 oz I&O: 06/04/19 06/05/19 06/06/19 06:59 06:59 06:59 Intake Total 3170 3495 Output Total 20 300 Balance 3150 3195 Result Diagrams: 06/05/19 04:50 06/05/19 04:50 Additional Labs: Accuchecks 06/05/19 06/04/19 06/04/19 04:30 19:46 16:13 POC Glucose 116 H 132 H 119 H 06/04/19 11:55 POC Glucose 128 H Hospitalist ROS - Review of Systems Constitutional: denies: fever, chills Respiratory: denies: cough, shortness of breath Cardiovascular: denies: chest pain, palpitations, orthopnea Gastrointestinal: reports: nausea, abdominal pain. denies: vomiting, diarrhea, constipation Genitourinary: denies: dysuria, hematuria - Medication Medications: Active Medications Generic Name Dose Route Start Last Admin Trade Name Freq PRN Reason Stop Dose Admin Acetaminophen 1,000 mg 05/30/19 17:25 05/31/19 14:11 Tylenol PO 1,000 mg Q6H PRN Administration Mild Pain (1-3) Acetaminophen 650 mg 06/02/19 17:58 06/02/19 18:30 Tylenol HI 650 mg Q6H PRN Administration Fever or Pain Cholecalciferol 2,000 units 05/31/19 21:00 06/04/19 19:47 Vitamin D3 PO Not Given BID LANI Enoxaparin Sodium 40 mg 06/04/19 09:00 06/04/19 09:03 Lovenox SC 40 mg 0900 [facility] Administration Hyoscyamine Sulfate 0.125 mg 06/01/19 16:15 06/05/19 06:32 Levsin Sl PO 0.125 mg Q4H PRN Administration GI Cramping Sodium Chloride 1,000 mls @ 31 mls/hr 05/30/19 17:30 06/04/19 21:42 Normal Saline 0.9% IV 1,000 mls .Q24H LANI Administration Sodium Acetate 40 meq/ Sodium 1,846.7021 mls @ 76.946 mls/hr 06/03/19 22:00 06/04/19 22:28 Chloride 30 meq/ Potassium IV 1,846.7021 mls Chloride 20 meq/ Potassium 2200 LANI Administration Phosphate 30 mmol/ Calcium Gluconate 10 meq/ Magnesium Sulfate 10 meq/ Multivitamins 10 ml/ Chromium/Copper/ Manganese/Seleni/Zn 5 ml/ Amino Acids/Dextrose/ Fat Emulsion Intravenous Promethazine HCl 12.5 mg/ 50.5 mls @ 202 mls/hr 06/04/19 19:15 06/05/19 06:32 Sodium Chloride IVPB 50.5 mls Q2H PRN Administration Nausea/Vomiting Ketorolac Tromethamine 30 mg 06/05/19 00:59 06/05/19 01:57 Toradol IVP 06/10/19 01:00 30 mg Q6H PRN Administration Pain Levothyroxine Sodium 112 mcg 06/01/19 06:00 06/05/19 05:29 Synthroid PO Not Given 0600 [facility] Levothyroxine Sodium 25 mcg 06/01/19 06:00 06/05/19 05:29 Synthroid PO Not Given 0600 [facility] Ondansetron HCl 4 mg 05/30/19 17:25 05/31/19 11:43 Zofran Odt PO 4 mg Q6H PRN Administration Nausea/Vomiting Ondansetron HCl 8 mg 05/30/19 17:25 06/05/19 01:57 Zofran IVP 8 mg Q6H PRN Administration Nausea/Vomiting Pantoprazole Sodium 40 mg 05/31/19 21:00 06/04/19 19:34 Protonix IVP 40 mg Q12HR LANI Administration - Exam General Appearance: NAD, awake alert ENT: moist mucosa Heart: RRR, no murmur, no gallops, no rubs Respiratory: CTAB, no wheezes, no rales, no ronchi Gastrointestinal - other findings: mild distension, moderate TTP QING, no guarding, decreased bowel sounds Psychiatric: normal affect, normal behavior, A&O x 3 Hosp A/P (1) Ileus Code(s): K56.7 - ILEUS, UNSPECIFIED Status: Acute (2) DM II (diabetes mellitus, type II), controlled Code(s): E11.9 - TYPE 2 DIABETES MELLITUS WITHOUT COMPLICATIONS Status: Chronic (3) Hypothyroid Code(s): E03.9 - HYPOTHYROIDISM, UNSPECIFIED Status: Chronic (4) Rectocele Code(s): N81.6 - RECTOCELE Status: Acute (5) Acute cephalic vein thrombosis Code(s): I82.619 - ACUTE EMBOLISM AND THROMBOSIS OF SUPERFIC VN UNSP UP EXTREM Status: Acute Qualifiers: Laterality: left Qualified Code(s): I82.612 - Acute embolism and thrombosis of superficial veins of left upper extremity (6) Impacted stool in intestine Code(s): K56.41 - FECAL IMPACTION Status: Acute - Plan Persistent illeus after evacuating stool from colon. Plan for operative intervention by Dr. Sanchez. DVT proph: Lovenox GI proph: Protonix
[2019-06-05] MEDS ORDERED: cefOXitin 2 GM in Sodium Chloride 0.9% 100 ML IVPB SCH (12:00)
[2019-06-05] MEDS ORDERED: Fentanyl 100 MCG/2 ML VIAL ONE (12:05)
[2019-06-05] MEDS ORDERED: HYDROmorphone 2 MG/ML VIAL ONE (12:07)
--- NOTE | 2019-06-05 12:09 | PRG ---
DATE OF SERVICE: 06/05/2019 The patient had a Gastrografin enema this morning, cleaned out her colon, still has evidence of an obstruction. We attempted multiple times to place NG tube, which she did not tolerate, so the plan is to proceed to the operating room for exploratory laparotomy, lysis of adhesions, and possible bowel resection. We discussed planned procedure as well as risk of bleeding, infection, injury to bowel, and recurrence of adhesions. She understands and gives her informed consent. Job ID: [id number]
[2019-06-05] MEDS ORDERED: SUGAMMADEX SODIUM 200 MG/2 ML VIAL ONE (12:47)
--- NOTE | 2019-06-05 13:20 | PRG ---
DATE OF SERVICE: 06/05/2019 SUBJECTIVE: Ms. Lima has had recurrence of her abdominal pain, particularly more in the right lower side since her NG tube has been out. She had a Gastrografin enema today, which confirms the colon to be cleared. OBJECTIVE: VITAL SIGNS: Temperature 98.7, pulse 89, and blood pressure 148/89. GENERAL: She is in no acute distress. She is uncomfortable with pain. LUNGS: Clear to auscultation bilaterally. HEART: Regular rate and rhythm without murmur. ABDOMEN: Soft. She is tender diffusely. Her bowel sounds are present, but hypoactive. EXTREMITIES: No lower extremity edema. LABORATORY DATA: White blood cell count 7.2, hemoglobin 13.1, and platelets 154. Creatinine 0.57. IMPRESSION: Small bowel obstruction. This has been partial to some degree given that contrast has gone through to the colon, and she does have some bowel sounds. However, again, she is developing recurrence of the small-bowel distention and pain once NG tube was discontinued. Attempt at replacement of the NG tube has been unsuccessful. The patient does not want the NG tube replaced and wants to proceed with surgical intervention at this point. She has had multiple prior abdominal surgeries and is at risk for adhesions. The obstruction appears to be very distal, perhaps at the ileocecal valve. RECOMMENDATIONS: I discussed the plan with Dr. Sanchez and with the patient. Plan is to proceed with surgery. Job ID: [id number]
[2019-06-05] MEDS ORDERED: MD-Gastroview 120 ML BOT ONE (13:27)
[2019-06-05] MEDS ORDERED: hydrALAZINE 20 MG/ML VIAL SLOW IVP PRN (14:11)
[2019-06-05] MEDS ORDERED: Ondansetron PF 4 MG/2 ML Vial IVP PRN (14:11)
[2019-06-05] MEDS ORDERED: Morphine 10 MG/ML VIAL SLOW IVP PRN (14:11)
[2019-06-05] MEDS ORDERED: Promethazine HCl 25 MG/ML VIAL IM PRN (14:11)
[2019-06-05] MEDS ORDERED: Morphine 2 MG/ML SYRINGE SLOW IVP PRN ×2 (14:11→14:32)
[2019-06-05] MEDS ORDERED: Ventilator Sedation Protocol 1 EACH FS ONE ×2 (14:14→15:31)
[2019-06-05] MEDS ORDERED: Fentanyl BOLUS 250 ML IVPB PRN (14:32)
[2019-06-05] MEDS ORDERED: fentaNYL Citrate/PF 2,000 MCG in Sodium Chloride 0.9% 60 ML IV SCH (14:32)
[2019-06-05] MEDS ORDERED: Lorazepam 2 MG/ML VIAL SLOW IVP PRN (14:32)
[2019-06-05] MEDS ORDERED: Propofol BOLUS 1,000 MG/100 ML VIAL IV PRN (14:32)
[2019-06-05] MEDS ORDERED: DISCONTINUE PREVIOUS NARCOTIC PAIN MEDICATIONS AND BENZODIAZEPINES FS SCH (14:32)
[2019-06-05] MEDS: Lorazepam 2 MG/ML VIAL ONE (14:33)
--- NOTE | 2019-06-05 14:45 | RAD ---
Chest AP view INDICATION: Status post intubation COMPARISON: Prior exam dated May 30, 2019 FINDINGS: Lungs:New bibasilar atelectasis, right greater than left Cardiac silhouette:The cardiomediastinal silhouette appears within normal limits. Pulmonary vasculature:Normal Pleural spaces:New small right pleural effusion Upper abdomen:No abnormality seen. Osseous structures: No acute osseous abnormality. Additional findings:The patient is intubated. ET tube tip is seen 5.6 cm from the level of molina. Ga stric catheter tip terminates at the level of the distal esophagus. Recommend advancement. IMPRESSION: 1. Interval intubation. The ET tube tip is seen 5.6 cm above the level of the level of molina. 2. Gastric catheter placement. The tip is seen within the distal esophagus. Recommend advancement. 3. Interval development of bibasilar atelectasis and a small right pleural effusion
[2019-06-05] MEDS: Propofol 1,000 MG/100 ML VIAL IV PRN ×2 (15:08→21:21)
[2019-06-05 15:09] LABS: Actual Bicarbonate (HCO3a) 26.4 mEq/L (22-28); CO2 Tension 44.8 mmHg (35.0-45.0); Calcium, Ionized 1.11 mmol/L (1.12-1.30); Carboxyhemoglobin (COHb) 0.5 gm% (0.0-3.0); Hemoglobin (Hb) 14.3 g/dL (12.0-16.0); O2 Tension (PaO2) 318.8 mmHg (80.0-100.0); Potassium - ABG Lab 3.64 mmol/L (3.70-5.30); pH, Arterial 7.39 (7.35-7.45)
[2019-06-05] MEDS ORDERED: DEXTROSE 5% IV SCH (15:15)
[2019-06-05] MEDS ORDERED: Methylene Blue 50 MG/10 ML AMPUL IV SCH (15:15)
[2019-06-05] MEDS ORDERED: WATER IV SCH (15:15)
[2019-06-05] MEDS ORDERED: METHYLENE BLUE IV SCH (15:15)
[2019-06-05] MEDS ORDERED: SODIUM CHLORIDE 0.9% IVPB SCH (15:25)
[2019-06-05] MEDS ORDERED: ASCORBIC ACID IVPB SCH (15:25)
[2019-06-05 15:27] LABS: Puncture Site ALINE
[2019-06-05] MEDS ORDERED: CCU Electrolyte Replacement 1 EACH FS ONE (15:31)
[2019-06-05] MEDS ORDERED: Magnesium 2 GM/50 ML 2 GM in Premix Bag 1 BAG IVPB PRN (15:40)
[2019-06-05] MEDS ORDERED: PHOS-NAK 1 PKT PACK PO PRN ×2 (15:40)
[2019-06-05] MEDS ORDERED: Potassium Phosphate 15 MMOL in Sodium Chloride 0.9% 250 ML 250 ML IV PRN (15:40)
[2019-06-05] MEDS ORDERED: Potassium Chloride 40 MEQ in Sodium Chloride 0.9% 250 ML 250 ML IVPB PRN (15:40)
[2019-06-05] MEDS ORDERED: Potassium Chloride 20 MEQ TAB PO PRN (15:40)
[2019-06-05] MEDS ORDERED: Potassium Chloride 40 MEQ in Premix Bag 1 BAG IVPB PRN (15:40)
[2019-06-05] MEDS ORDERED: Potassium Phosphate 12 MMOL in Sodium Chloride 0.9% 250 ML 250 ML IV PRN (15:40)
[2019-06-05] MEDS ORDERED: Magnesium Oxide 400 MG TAB PO PRN ×2 (15:40)
[2019-06-05] MEDS ORDERED: CCU ELECTROLYTE REPLACEMENT PROTOCOL FS PRN (15:40)
[2019-06-05] MEDS ORDERED: Potassium Phosphate 9 MMOL in Sodium Chloride 0.9% 100 ML IVPB PRN (15:40)
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
[2019-06-05 17:56] LABS: Actual Bicarbonate (HCO3a) 23.3 mEq/L (22-28); Base Excess (BEa) -1.8 mEq/L (-2.0 to +3.0); CO2 Tension 40.6 mmHg (35.0-45.0); Calcium, Ionized 1.11 mmol/L (1.12-1.30); Carboxyhemoglobin (COHb) 0.6 gm% (0.0-3.0); Hemoglobin (Hb) 13.2 g/dL (12.0-16.0); O2 Tension (PaO2) 235.2 mmHg (80.0-100.0); Potassium - ABG Lab 3.74 mmol/L (3.70-5.30); pH, Arterial 7.38 (7.35-7.45)
[2019-06-05 17:57] LABS: Puncture Site ALINE
[2019-06-05] MEDS: SODIUM CHLORIDE 0.9% IVPB SCH (21:28)
[2019-06-05] MEDS: ASCORBIC ACID IVPB SCH (21:28)
[2019-06-05] MEDS: Famotidine 20 MG TAB PO SCH (21:29)
[2019-06-05] MEDS: Famotidine/PF 20 mg/2ml Vial SLOW IVP SCH (21:29)
[2019-06-05] MEDS: Sodium Chloride 0.9% 1,000 ML IV SCH (21:42)
[2019-06-05] MEDS: HumaLOG 300 UNITS/3 ML VIAL SC PRN (22:31)
[2019-06-05] MEDS: cefOXitin Sodium/Dextrose,Iso 2 GM in Premix Bag 1 BAG IVPB SCH (22:37)
[2019-06-05] MEDS: Sodium Acetate 2 mEq/ml 40 MEQ, Sodium Chloride 30 MEQ, Potassium Chloride 20 MEQ, Pota... IV SCH (22:40)
[2019-06-06] MEDS: ASCORBIC ACID IVPB SCH ×4 (02:54→21:45)
[2019-06-06] MEDS: SODIUM CHLORIDE 0.9% IVPB SCH ×4 (02:54→21:45)
[2019-06-06 04:21] LABS: #Monocytes 0.4 thou/uL (0.11-0.59); #Neutrophils 9.3 thou/uL (1.40-6.50); %Eosinophils 0.1 % (0.0-10.0); %Lymphocytes 9.1 % (21.0-51.0); %Monocytes 3.8 % (0.0-10.0); Hemoglobin 11.7 g/dL (12.0-16.0); Mean Corpuscular Hemoglobin 34.4 pg (27.0-31.0); Mean Corpuscular Volume 98.1 fL (78.0-98.0); Platelet Count 168 thou/uL (130-400); Red Blood Cell (RBC) Count 3.39 mill/uL (4.20-5.40); White Blood Cell (WBC) Count 10.6 thou/uL (4.8-10.8)
[2019-06-06 04:43] LABS: Anion Gap 11 mmol/L (10-20); BUN (Urea Nitrogen) 13 mg/dL (9.8-20.1); Calc. Creatinine Clearance 172 mL/min (70-130); Calcium 8.3 mg/dL (7.8-10.44); Carbon Dioxide 25 mmol/L (22-29); Chloride 108 mmol/L (98-107); Estimated GFR-MDRD Greater than 90; Glucose 184 mg/dL (70-105); Sodium 140 mmol/L (136-145)
[2019-06-06] MEDS: Propofol 1,000 MG/100 ML VIAL IV PRN (04:55)
[2019-06-06] MEDS: HumaLOG 300 UNITS/3 ML VIAL SC PRN (04:56)
[2019-06-06] MEDS: Levothyroxine Sodium 25 MCG TAB PO SCH (05:48)
[2019-06-06] MEDS: Levothyroxine Sodium 112 MCG TAB PO SCH (05:48)
[2019-06-06] MEDS: cefOXitin Sodium/Dextrose,Iso 2 GM in Premix Bag 1 BAG IVPB SCH (05:48)
[2019-06-06 06:53] LABS: Actual Bicarbonate (HCO3a) 26.2 mEq/L (22-28); Base Excess (BEa) 1.2 mEq/L (-2.0 to +3.0); CO2 Tension 42.7 mmHg (35.0-45.0); Calcium, Ionized 1.17 mmol/L (1.12-1.30); Hemoglobin (Hb) 11.4 g/dL (12.0-16.0); Potassium - ABG Lab 3.95 mmol/L (3.70-5.30); pH, Arterial 7.41 (7.35-7.45)
[2019-06-06 06:57] LABS: ALV-art Gradient 395.625 (0-20); Puncture Site ALINE
[2019-06-06] MEDS ORDERED: DC Sedation Protocol FS ONE (07:20)
--- NOTE | 2019-06-06 08:09 | PRG ---
DATE OF SERVICE: 06/06/2019 SUBJECTIVE: The patient is awake on mechanical ventilation. She has done extremely well overnight. OBJECTIVE: VITAL SIGNS: Her temperature is 98.9, pulse 69, blood pressure 108/51, and O2 saturation 100%. Intake 3495, output 1835. HEENT: Unremarkable. NECK: No adenopathy or JVD. LUNGS: Clear without wheezing or rhonchi. CARDIAC: S1 and S2, regular. ABDOMEN: Soft, nontender. EXTREMITIES: No edema. No cyanosis. IMAGING STUDIES: Chest x-ray shows no mass, effusion, or infiltrate. LABORATORY DATA: PH 7.41, pCO2 of 42, pO2 of 264 on SIMV, rate 12, tidal volume 470, PEEP 5, pressure support 10, and FiO2 of 100%. Her methemoglobin level is 0.3, down from a high of 20. White blood cell count 10.6, hematocrit 33.3, and platelet count 168. Sodium 140, potassium 4, chloride 108, CO2 of 25, BUN 13, creatinine 0.5, and glucose 184. ASSESSMENT: 1. Acquired methemoglobinemia from topical anesthetic mouth spray. 2. Acute respiratory failure, requiring mechanical ventilation. PLAN: Since the methemoglobinemia is resolved, we will go ahead and extubate. If she does well, she can be transferred to the floor later this afternoon. She will finish up a few more doses of vitamin C. G6PD level has been drawn, but I think it will take some time for this to come back. Job ID: [id number]
--- NOTE | 2019-06-06 08:43 | PDOC.HOSPP ---
- Subjective Encounter Date: 06/06/19 Encounter Time: 11:00 Subjective: Patient feeling much better today. NG tube irritating throat. No N/V. Had some liquidy BM this AM. - Objective Vital Signs & Weight: Vital Signs (12 hours) Temp Pulse Resp BP 06/06/19 06:30 65 106/50 L 06/06/19 06:00 12 06/06/19 04:00 98.9 F 14 06/06/19 02:15 70 116/74 06/06/19 02:00 12 06/06/19 00:40 76 116/74 06/06/19 00:00 99.1 F 12 06/05/19 22:00 19 06/05/19 21:54 96 115/74 Weight Admit Weight 201 lb 9.6 oz Weight 201 lb 9.6 oz Most Recent Monitor Data Heart Rate from ECG 65 NIBP 99/60 NIBP BP-Mean 73 Respiration from ECG 12 SpO2 100 I&O: 06/05/19 06/06/19 06/07/19 06:59 06:59 06:59 Intake Total 3495 3208.5 Output Total 300 1835 Balance 3195 1373.5 Result Diagrams: 06/06/19 03:14 06/06/19 03:14 Additional Labs: Accuchecks 06/05/19 06/05/19 06/05/19 22:24 16:12 13:46 POC Glucose 188 H 172 H 132 H 06/05/19 12:21 POC Glucose 137 H Hospitalist ROS - Review of Systems Constitutional: denies: fever, chills Respiratory: denies: cough, shortness of breath Cardiovascular: denies: chest pain, palpitations, orthopnea Gastrointestinal: reports: diarrhea. denies: nausea, vomiting - Medication Medications: Active Medications Generic Name Dose Route Start Last Admin Trade Name Freq PRN Reason Stop Dose Admin Acetaminophen 1,000 mg 05/30/19 17:25 05/31/19 14:11 Tylenol PO 1,000 mg Q6H PRN Administration Mild Pain (1-3) Acetaminophen 650 mg 06/02/19 17:58 06/02/19 18:30 Tylenol [place] 650 mg Q6H PRN Administration Fever or Pain Cholecalciferol 2,000 units 05/31/19 21:00 06/05/19 21:29 Vitamin D3 PO 2,000 units BID LANI Administration Enoxaparin Sodium 40 mg 06/04/19 09:00 06/05/19 09:58 Lovenox SC 40 mg 0900 LANI Administration Famotidine 20 mg 06/05/19 21:00 06/05/19 21:29 Pepcid PO Not Given Q12HR LANI Famotidine 20 mg 06/05/19 21:00 06/05/19 21:29 Pepcid SLOW IVP 20 mg Q12HR LANI Administration Hyoscyamine Sulfate 0.125 mg 06/01/19 16:15 06/05/19 06:32 Levsin Sl PO 0.125 mg Q4H PRN Administration GI Cramping Sodium Chloride 1,000 mls @ 31 mls/hr 05/30/19 17:30 06/05/19 21:42 Normal Saline 0.9% IV 1,000 mls .Q24H LANI Administration Sodium Acetate 40 meq/ Sodium 1,846.7021 mls @ 76.946 mls/hr 06/03/19 22:00 06/05/19 22:40 Chloride 30 meq/ Potassium IV 1,846.7021 mls Chloride 20 meq/ Potassium 2200 LANI Administration Phosphate 30 mmol/ Calcium Gluconate 10 meq/ Magnesium Sulfate 10 meq/ Multivitamins 10 ml/ Chromium/Copper/ Manganese/Seleni/Zn 5 ml/ Amino Acids/Dextrose/ Fat Emulsion Intravenous Promethazine HCl 12.5 mg/ 50.5 mls @ 202 mls/hr 06/04/19 19:15 06/05/19 06:32 Sodium Chloride IVPB 50.5 mls Q2H PRN Administration Nausea/Vomiting Ascorbic Acid 5,000 mg/ Sodium 260 mls @ 130 mls/hr 06/05/19 21:00 06/06/19 02:54 Chloride IVPB 06/06/19 22:59 260 mls 0300,0900,1500,2100 LANI Administration Insulin Human Lispro 0 units 05/30/19 17:41 06/06/19 04:56 Humalog SC 2 unit .MILD SLIDING SCALE PRN Administration Mild Correctional Scale Ketorolac Tromethamine 30 mg 06/05/19 00:59 06/05/19 10:23 Toradol IVP 06/10/19 01:00 30 mg Q6H PRN Administration Pain Levothyroxine Sodium 112 mcg 06/01/19 06:00 06/06/19 05:48 Synthroid PO 112 mcg 0600 LANI Administration Levothyroxine Sodium 25 mcg 06/01/19 06:00 06/06/19 05:48 Synthroid PO 25 mcg 0600 LANI Administration Ondansetron HCl 4 mg 05/30/19 17:25 05/31/19 11:43 Zofran Odt PO 4 mg Q6H PRN Administration Nausea/Vomiting Pantoprazole Sodium 40 mg 05/31/19 21:00 06/05/19 21:29 Protonix IVP 40 mg Q12HR LANI Administration - Exam General Appearance: NAD, awake alert ENT: moist mucosa Heart: RRR, no murmur, no gallops, no rubs Respiratory: CTAB, no wheezes, no rales, no ronchi Gastrointestinal: soft, normal bowel sounds Psychiatric: normal affect, normal behavior, A&O x 3 Hosp A/P (1) Ileus Code(s): K56.7 - ILEUS, UNSPECIFIED Status: Acute (2) DM II (diabetes mellitus, type II), controlled Code(s): E11.9 - TYPE 2 DIABETES MELLITUS WITHOUT COMPLICATIONS Status: Chronic (3) Hypothyroid Code(s): E03.9 - HYPOTHYROIDISM, UNSPECIFIED Status: Chronic (4) Rectocele Code(s): N81.6 - RECTOCELE Status: Acute (5) Acute cephalic vein thrombosis Code(s): I82.619 - ACUTE EMBOLISM AND THROMBOSIS OF SUPERFIC VN UNSP UP EXTREM Status: Acute Qualifiers: Laterality: left Qualified Code(s): I82.612 - Acute embolism and thrombosis of superficial veins of left upper extremity (6) Impacted stool in intestine Code(s): K56.41 - FECAL IMPACTION Status: Resolved (7) Acute respiratory failure with hypoxemia Code(s): J96.01 - ACUTE RESPIRATORY FAILURE WITH HYPOXIA Status: Acute (8) Methemoglobinemia Code(s): D74.9 - METHEMOGLOBINEMIA, UNSPECIFIED Status: Acute - Plan Persistent illeus s/p adhesionolysis 06/05/[address] Sanchez. Operation complicated by methemoglobinemia thought to be due to the Hurricaine spray for the NG tube Intubated, oxygenation improved, now resolved and extubated. DVT proph: Lovenox GI proph: Protonix
--- NOTE | 2019-06-06 08:48 | RAD ---
PORTABLE AP CHEST XRAY: HISTORY: Pneumonia. COMPARISON: 06/05/2019. FINDINGS: Endotracheal tube and gastric tubes remain in place. Distal aspect of the nasogastric tube again ter minates overlying the expected location of the distal esophagus and should be advanced. There is giselle vation of the right hemidiaphragm with findings likely related to atelectasis at the right lung base. There is also minimal atelectasis of the left lung base. The lungs otherwise appear clear. There may be a tiny right pleural effusion. Left-sided PICC line is stable in position. IMPRESSION: 1. Overall stable chest. The gastric tube is again seen with tip overlying the distal esophagus and should be advanced. 2. Elevation of the right hemidiaphragm with atelectasis right lung base and a question of tiny righ t pleural effusion. POS: OFF
[2019-06-06] MEDS: Famotidine 20 MG TAB PO SCH ×2 (09:15→21:44)
[2019-06-06] MEDS: Famotidine/PF 20 mg/2ml Vial SLOW IVP SCH ×2 (09:23→21:44)
[2019-06-06] MEDS: Enoxaparin Sodium 40 MG/0.4 ML SYRINGE SC SCH (09:24)
[2019-06-06] MEDS: Pantoprazole 40 MG VIAL IVP SCH ×2 (09:25→21:44)
--- NOTE | 2019-06-06 11:17 | PRG ---
DATE OF SERVICE: 06/06/2019 SUBJECTIVE: The patient is doing well. She has been extubated. Minimal pain. No nausea or vomiting. Her urinary catheter has been removed. She is urinating. OBJECTIVE: VITAL SIGNS: Her O2 saturation is 99%, heart rate of 73, blood pressure of 108/60. She is afebrile. GENERAL: She is awake, alert. She has had 200 out of her NG tube. ABDOMEN: Her abdomen is slightly distended. Good bowel sounds. She has had bowel movements. LABORATORY DATA: Her white count is 10, H and H of 11 and 33, platelet count 168. Electrolytes are fine. ASSESSMENT: Doing well. PLAN: Transfer to floor. Ambulate. Job ID: [id number]
--- NOTE | 2019-06-06 14:24 | OP ---
DATE OF PROCEDURE: 06/05/2019 PREOPERATIVE DIAGNOSIS: Small-bowel obstruction. PROCEDURES PERFORMED: Exploratory laparotomy and lysis of adhesions. INDICATIONS: This is a 53-year-old female who has had several previous abdominal surgeries, who came in with a very atypical presentation, but then had a lot of nausea and vomiting. It felt like it was possibly related to a colonic impaction, but when that was relieved, she continued to have symptoms and dilated small bowel. She refused NG tube. FINDINGS: She had a very ischemic bowel herniated through the internal hernia and band adhesion. This band adhesion was lysed and the bowel pinked up. There was a second band adhesion that was also causing a partial obstruction that was lysed. Both of these were on the right upper flank area. DESCRIPTION OF PROCEDURE: After informed consent was obtained, the patient was taken to the operating room and given general endotracheal anesthesia. She was placed in supine position. Abdomen was prepped and draped in usual fashion. Local anesthesia was infiltrated subcutaneously and deep, and a midline incision was performed. Subcu was divided sharply. The fascia was incised with a 10 blade. The abdomen was explored. There was quite a bit of hemorrhagic peritoneal fluid and there was some very ischemic appearing bowel. The dilated bowel was traced down to this adhesion, where it had herniated through and was very tight. This was lysed sharply with Metzenbaum scissors releasing the bowel and traced down to a second area of adhesions that was also ischemic. This was also opened. Relieving the bowel, first it looks fairly purple in appearance and ischemic, but it did pink up. The intestine was run from the ileocecal valve to the ligament of Treitz. No other problems were seen. The abdomen was thoroughly irrigated with saline. Hemostasis was assured. The bowel was placed intra-abdominally. The omentum was placed anteriorly. The fascia was closed with a running looped #1 PDS. Subcu was irrigated. Hemostasis was assured. Subcu was reapproximated with interrupted 3-0 Vicryl, and the skin was closed with a running subcuticular 4-0 Rapide. Steri-Strips applied. Sterile bandage was applied. The patient tolerated the procedure well, transferred to Recovery in good condition. Sponge and needle count verified correct x2. Job ID: [id number]
[2019-06-06] MEDS: Ketorolac Tromethamine 30 MG/ML VIAL IVP PRN (18:59)
[2019-06-06] MEDS: Sodium Acetate 2 mEq/ml 40 MEQ, Sodium Chloride 30 MEQ, Potassium Chloride 20 MEQ, Pota... IV SCH (22:29)
[2019-06-07] MEDS: HumaLOG 300 UNITS/3 ML VIAL SC PRN (00:54)
[2019-06-07] MEDS: Sodium Chloride 0.9% 1,000 ML IV SCH (02:08)
[2019-06-07] MEDS: Levothyroxine Sodium 25 MCG TAB PO SCH (05:30)
[2019-06-07] MEDS: Levothyroxine Sodium 112 MCG TAB PO SCH (05:30)
--- NOTE | 2019-06-07 08:49 | PRG ---
DATE OF SERVICE: 06/07/2019 SUBJECTIVE: The patient is feeling much better. She is actually feeling hungry. No nausea or vomiting, having multiple bowel movements. PHYSICAL EXAMINATION: VITAL SIGNS: Temperature is 98, pulse 70, blood pressure 120/75. GENERAL: She looks good. The incision is healing well. There is no evidence of infection. ASSESSMENT: Doing well. PLAN: Advance diet. Wean TPN. Home soon. Job ID: [id number]
--- NOTE | 2019-06-07 09:03 | PDOC.HOSPP ---
- Subjective Encounter Date: 06/07/19 Encounter Time: 13:30 Subjective: Patient noted blurry vision on right and dilated right pupil this AM. Had a scopolamine patch behind right ear until 2 days ago. Just washed hair this AM in sink and thinks some leftover med from patch may have gotten in eye. No other neuro symptoms. Feeling much better. Tolerating some oral fluids/foods. Dr. Sanchez to come by later and decide if can d/c today or tomorrow. Passing stool and gas well. - Objective Vital Signs & Weight: Vital Signs (12 hours) Temp Pulse Resp BP BP Pulse Ox 06/07/19 07:26 98.8 F 70 18 120/75 92 L 06/07/19 03:15 98.7 F 70 16 124/75 92 L 06/06/19 23:35 98.5 F 71 16 134/74 94 L Weight Admit Weight 201 lb 9.6 oz Weight 201 lb 9.6 oz Most Recent Monitor Data Heart Rate from ECG 71 NIBP 130/78 NIBP BP-Mean 95 Respiration from ECG 12 SpO2 100 I&O: 06/06/19 06/07/19 06/08/19 06:59 06:59 06:59 Intake Total 3208.5 1783 1499.2 Output Total 1835 125 Balance 1373.5 1658 1499.2 Result Diagrams: 06/06/19 03:14 06/06/19 03:14 Additional Labs: Accuchecks 06/07/19 06/06/19 06/06/19 05:22 23:45 17:17 POC Glucose 133 H 166 H 122 H 06/06/19 06/06/19 10:13 04:58 POC Glucose 139 H 191 H Hospitalist ROS - Review of Systems Constitutional: denies: fever, chills Eyes: reports: vision change Respiratory: denies: cough, shortness of breath Cardiovascular: denies: chest pain, palpitations, orthopnea Gastrointestinal: denies: nausea, vomiting, abdominal pain, diarrhea, constipation Genitourinary: denies: dysuria, hematuria - Medication Medications: Active Medications Generic Name Dose Route Start Last Admin Trade Name Freq PRN Reason Stop Dose Admin Acetaminophen 1,000 mg 05/30/19 17:25 05/31/19 14:11 Tylenol PO 1,000 mg Q6H PRN Administration Mild Pain (1-3) Acetaminophen 650 mg 06/02/19 17:58 06/02/19 18:30 Tylenol [place] 650 mg Q6H PRN Administration Fever or Pain Cholecalciferol 2,000 units 05/31/19 21:00 06/06/19 21:44 Vitamin D3 PO 2,000 units BID LANI Administration Enoxaparin Sodium 40 mg 06/04/19 09:00 06/06/19 09:24 Lovenox SC 40 mg 0900 LANI Administration Famotidine 20 mg 06/05/19 21:00 06/06/19 21:44 Pepcid PO 20 mg Q12HR LANI Administration Famotidine 20 mg 06/05/19 21:00 06/06/19 21:44 Pepcid SLOW IVP Not Given Q12HR [facility] Hyoscyamine Sulfate 0.125 mg 06/01/19 16:15 06/05/19 06:32 Levsin Sl PO 0.125 mg Q4H PRN Administration GI Cramping Sodium Chloride 1,000 mls @ 31 mls/hr 05/30/19 17:30 06/07/19 02:08 Normal Saline 0.9% IV Not Given .Q24H LANI Sodium Acetate 40 meq/ Sodium 1,846.7021 mls @ 76.946 mls/hr 06/03/19 22:00 06/06/19 22:29 Chloride 30 meq/ Potassium IV 1,846.7021 mls Chloride 20 meq/ Potassium 2200 LANI Administration Phosphate 30 mmol/ Calcium Gluconate 10 meq/ Magnesium Sulfate 10 meq/ Multivitamins 10 ml/ Chromium/Copper/ Manganese/Seleni/Zn 5 ml/ Amino Acids/Dextrose/ Fat Emulsion Intravenous Promethazine HCl 12.5 mg/ 50.5 mls @ 202 mls/hr 06/04/19 19:15 06/05/19 06:32 Sodium Chloride IVPB 50.5 mls Q2H PRN Administration Nausea/Vomiting Insulin Human Lispro 0 units 05/30/19 17:41 06/07/19 00:54 Humalog SC 2 unit .MILD SLIDING SCALE PRN Administration Mild Correctional Scale Ketorolac Tromethamine 30 mg 06/05/19 00:59 06/06/19 18:59 Toradol IVP 06/10/19 01:00 30 mg Q6H PRN Administration Pain Levothyroxine Sodium 112 mcg 06/01/19 06:00 06/07/19 05:30 Synthroid PO 112 mcg 0600 LANI Administration Levothyroxine Sodium 25 mcg 06/01/19 06:00 06/07/19 05:30 Synthroid PO 25 mcg 0600 LANI Administration Ondansetron HCl 4 mg 05/30/19 17:25 05/31/19 11:43 Zofran Odt PO 4 mg Q6H PRN Administration Nausea/Vomiting Pantoprazole Sodium 40 mg 05/31/19 21:00 06/06/19 21:44 Protonix IVP 40 mg Q12HR LANI Administration - Exam General Appearance: NAD, awake alert Eye - other findings: right pupil 5-6mm and slow reaction to light, left 3mm and brisk ENT: moist mucosa Heart: RRR, no murmur, no gallops, no rubs Respiratory: CTAB, no wheezes, no rales, no ronchi Gastrointestinal: soft, non-distended, normal bowel sounds Gastrointestinal - other findings: normal postop tenderness Neurological: cranial nerve grossly intact, no focal deficits Neurological - other findings: other than pupil difference Musculoskeletal: normal tone, normal strength Psychiatric: normal affect, normal behavior, A&O x 3 Hosp A/P (1) Ileus Code(s): K56.7 - ILEUS, UNSPECIFIED Status: Acute (2) DM II (diabetes mellitus, type II), controlled Code(s): E11.9 - TYPE 2 DIABETES MELLITUS WITHOUT COMPLICATIONS Status: Chronic (3) Hypothyroid Code(s): E03.9 - HYPOTHYROIDISM, UNSPECIFIED Status: Chronic (4) Rectocele Code(s): N81.6 - RECTOCELE Status: Acute (5) Acute cephalic vein thrombosis Code(s): I82.619 - ACUTE EMBOLISM AND THROMBOSIS OF SUPERFIC VN UNSP UP EXTREM Status: Acute Qualifiers: Laterality: left Qualified Code(s): I82.612 - Acute embolism and thrombosis of superficial veins of left upper extremity (6) Impacted stool in intestine Code(s): K56.41 - FECAL IMPACTION Status: Resolved (7) Acute respiratory failure with hypoxemia Code(s): J96.01 - ACUTE RESPIRATORY FAILURE WITH HYPOXIA Status: Resolved (8) Methemoglobinemia Code(s): D74.9 - METHEMOGLOBINEMIA, UNSPECIFIED Status: Resolved (9) Mydriasis Code(s): H57.04 - MYDRIASIS Status: Acute Plan: likely due to scopolamine - Plan Persistent illeus s/p adhesionolysis 06/05/[address] Sanchez, doing much better and wanting to eat Operation complicated by methemoglobinemia thought to be due to the Hurricaine spray for the NG tube Now resolved. D/c when ok with Dr. Sanchez Mydriasis likely due to scopolamine. I ordered pilocarpine to bedside to test and make sure this is a chemical mydriasis, however patient reported hx of retinal tear in past. I called patient 's retinal specialist Dr. Mitchell and he recommended observation, if still dilated tomorrow she can call his office and set up an appointment then or for Wednesday. DVT proph: Lovenox GI proph: Protonix
--- NOTE | 2019-06-07 09:29 | PRG ---
DATE OF SERVICE: 06/07/2019 SUBJECTIVE: She is sitting up, she is in good spirits. She wants to go home. OBJECTIVE: VITAL SIGNS: Her temperature is 98.8, pulse 70, respirations 18, O2 saturation 92% on room air, and blood pressure 120/75. HEENT: Unremarkable. NECK: No adenopathy or JVD. CHEST: Clear. CARDIAC: S1, S2. Regular. ABDOMEN: Soft. EXTREMITIES: No edema. LABORATORY DATA: No new labs were done today. ASSESSMENT: 1. Status post acquired methemoglobinemia, secondary to HurriCaine spray. 2. Rule out G6PD deficiency. PLAN: A G6PD test will not be back for quite some time. I told her to follow up with me by phone call as an outpatient on that. She has received her allotment of vitamin C. I do not suspect that she will have any more problems from an oxygenation standpoint and she is safe for discharge at any time. I will sign off. Please recall us any questions. Job ID: [id number]
--- NOTE | 2019-06-07 09:43 | RAD ---
PORTABLE CHEST: INDICATIONS: Pneumonia followup. COMPARISON: 06/06/2019 FINDINGS: Mild elevation of the right hemidiaphragm with blunting of the right CP angle again noted. Findings s uggest mild atelectasis and/or infiltrate in the right lung base, stable from yesterday. The lungs ar e otherwise clear and unchanged. POS: H
[2019-06-07] MEDS: Famotidine 20 MG TAB PO SCH (10:00)
[2019-06-07] MEDS: Enoxaparin Sodium 40 MG/0.4 ML SYRINGE SC SCH (10:06)
[2019-06-07] MEDS: Famotidine/PF 20 mg/2ml Vial SLOW IVP SCH (10:07)
[2019-06-07] MEDS: Pantoprazole 40 MG VIAL IVP SCH (10:10)
[2019-06-07] MEDS ORDERED: Pilocarpine 1% Ophth Drops 15 ML BOT EA EYE PRN (12:02)
[2019-06-07 12:09] LABS: G-6-PD,Quant 246 (146-376); G-6-PD,RBC 3.75 x10E6/uL (3.77-5.28)
[2019-06-07 15:09] VITALS: BP 121/66; TEMP 99.3
--- NOTE | 2019-06-08 09:29 | DIS ---
DATE OF ADMISSION: 05/30/2019 DATE OF DISCHARGE: 06/07/2019 DISCHARGE DIAGNOSES: 1. Small bowel obstruction. 2. Colonic impaction. PROCEDURES DURING ADMISSION: Esophagogastroduodenoscopy, endoscopic retrograde cholangiopancreatography with sphincterotomy, small bowel follow-through, Gastrografin enema, exploratory laparotomy, lysis of adhesions. HOSPITAL COURSE: The patient was admitted, complaining of vague abdominal pain. CT scan showed some mild dilatation of the distal small bowel. She had some elevation of her LFTs. GI was consulted. After an MRCP showed maybe some bile duct dilatation, ERCP was performed. I really saw no residual stones. Then, she started having progressive nausea and vomiting. NG tube was placed. She got better. Small bowel follow-through just showed almost an acute cut-off at the ileocecal valve and her colon was impacted with feces. We tried to clean her out with GoLYTELY. It did not work. We wand up doing a barium enema using Gastrografin, which did clean her out, but she still had a residual small bowel dilatation consistent with persistent small bowel obstruction, so she was taken to the operating room as she was unable to have an NG tube placed and was found to have 2 internal hernias that were from band adhesions from her previous renal surgery. These were lysed and postoperatively, she has done very well. Her bowel functions returned. Initially, she was observed in the intensive care unit for a day. She was having some hypoxia perioperative, which was related to an elevated carboxyhemoglobin related to the numbing spray used to try and get the NG tube placed, but she did fine. She was transferred to the floor. NG is out. She is tolerating full liquids. Her bowels are working well. Her pain is minimal. She is afebrile. She is discharged home on hydrocodone and Zofran. She will follow up with me in 2 weeks. Job ID: [id number]
== END 2019-06-07 17:15 | disposition home or self-care (01) | DRG 335 ==
LOC: ERS 11:07 → ERHOLD 15:55 → OBSVTOIN 15:55 → T4-B 19:57 → CCU 06-05 14:06 → SURG A 06-06 18:29
PROVIDERS: ADMIT Family Medicine; ATTEND Family Medicine
PROC: 0DJ08ZZ Inspection of Upper Intestinal Tract, Via Natural or Artificial Opening Endoscopic (ICD-10-PCS; principal; 2019-06-01)
PROC: 0F798ZZ Dilation of Common Bile Duct, Via Natural or Artificial Opening Endoscopic (ICD-10-PCS; 2019-06-01)
PROC: BF131ZZ Fluoroscopy of Gallbladder and Bile Ducts using Low Osmolar Contrast (ICD-10-PCS; 2019-06-01)
PROC: 02HV33Z Insertion of Infusion Device into Superior Vena Cava, Percutaneous Approach (ICD-10-PCS; 2019-06-02)
PROC: 0DN80ZZ Release Small Intestine, Open Approach (ICD-10-PCS; 2019-06-05)
DX: K56.7 Ileus, unspecified (principal); J96.01 Acute respiratory failure with hypoxia; I82.612 Acute embolism and thrombosis of superficial veins of left upper extremity; D74.9 Methemoglobinemia, unspecified; K55.9 Vascular disorder of intestine, unspecified; K46.0 Unspecified abdominal hernia with obstruction, without gangrene; D74.8 Other methemoglobinemias; K56.41 Fecal impaction; E11.9 Type 2 diabetes mellitus without complications; E03.9 Hypothyroidism, unspecified; N81.6 Rectocele; H57.04 Mydriasis; Z90.49 Acquired absence of other specified parts of digestive tract; Z90.5 Acquired absence of kidney; Z90.3 Acquired absence of stomach [part of]; K56.50 Intestinal adhesions [bands], unspecified as to partial versus complete obstruction; T41.3X5A Adverse effect of local anesthetics, initial encounter
CPT/HCPCS: 36415; 36416; 36569; 71045; 74018; 74177; 74181; 74250; 74270; 74330; 80048; 80053; 80061; 81003; 81015; 82805; 82955; 83690; 83735; 84100; 84134; 84439; 84443; 84484; 85007; 85025; 85027; 85041; 85610; 85730; 93005; 93975; 94002; 94003; 96361; 96374; 96375; 96376; C1751; C9113; J0690; J0694; J1100; J1170; J1610; J1642; J1644; J1650; J1885; J2001; J2060; J2250; J2270; J2405; J2550; J2704; J2765; J3010; J3475; J3480; J3490; J7050; Q0162; Q9963; Q9967; S0028

== ENCOUNTER 2020-01-11 07:36 | Outpatient (CLI) | payer OTHER ==
--- NOTE | 2020-01-11 08:32 | MRI ---
MR the lumbar spine without contrast INDICATION: Lumbar radiculopathy COMPARISON: Lumbar spinal radiograph dated December 30, 2018 TECHNIQUE: Multiplanar multisequence MR images were obtained of lumbar spine without IV contrast. FINDINGS: Bone marrow: Bone marrow signal intensity appears within normal limits. Distal spinal cord and conus: Normal. The conus seen to terminate at L1. Visualized retroperitoneum and paraspinal soft tissues: Normal. Vertebral levels: L5-S1: There is a mild broad-based disc bulge with facet hypertrophy. There is mild bilateral neural foraminal narrowing.. L4-5: There is a broad-based disc bulge with facet hypertrophy inducing mild bilateral neural foramin al narrowing. L3-4: There is mild discal appreciable central canal narrowing. L2-3: There is mild broad-based disc bulge without appreciable central canal or neural foraminal narr owing. L1-L2: There is a broad-based disc bulge without appreciable central canal narrowing T12-L1: There is a broad-based disc bulge superimposed central disc protrusion but no appreciable kim rowing. IMPRESSION: 1. Mild lumbar spondylosis. 2. Mild bilateral neural foraminal narrowing at L5-S1
== END 2020-01-11 07:37 | disposition home or self-care (01) ==
LOC: BICMRI 07:36
PROVIDERS: ATTEND Internal Medicine
DX: M47.26 Other spondylosis with radiculopathy, lumbar region (principal); M48.07 Spinal stenosis, lumbosacral region
CPT/HCPCS: 72148

== ENCOUNTER 2020-01-17 10:36 | Outpatient (CLI) | payer OTHER ==
--- NOTE | 2020-01-17 14:38 | NM ---
Three-phase bone scan HISTORY: Left hip pain. Painful hardware. FINDINGS: Physiologic uptake about the pelvis and hips present on the arterial flow and blood pool im aging. Photopenic defect at the left hip consistent with metallic prosthesis. No abnormal areas of increased activity. Delayed whole-body images show mild degenerative changes of the shoulders and ankles. IMPRESSION : No scintigraphic evidence of complication related to the left hip prosthesis.
== END 2020-01-17 10:37 | disposition home or self-care (01) ==
LOC: NM 10:36
PROVIDERS: ATTEND Specialist
DX: T84.84XA Pain due to internal orthopedic prosthetic devices, implants and grafts, initial encounter (principal); Z96.642 Presence of left artificial hip joint
CPT/HCPCS: 78315

== ENCOUNTER 2020-02-21 08:43 | Outpatient (CLI) | payer OTHER ==
--- NOTE | 2020-02-21 09:51 | RAD ---
PA AND LATERAL VIEWS CHEST: Date: 02/21/2020 HISTORY: Kidney cancer. COMPARISON: 06/07/2019. FINDINGS: There is continued mild elevation of the right hemidiaphragm. The heart size is normal. The lungs are expanded without focal areas of consolidation, pneumothoraces, masses, or pleural effusions. There a re degenerative changes in the spine. IMPRESSION: No radiographic evidence of acute cardiopulmonary process. POS: AH
== END 2020-02-21 08:44 | disposition home or self-care (01) ==
LOC: BICRAD 08:43
PROVIDERS: ATTEND Urology
DX: C64.9 Malignant neoplasm of unspecified kidney, except renal pelvis (principal)
CPT/HCPCS: 36415; 71046; 80053; 80061; 82306; 83036; 84439; 84443; 84481; 85025

== ENCOUNTER 2020-03-12 15:48 | Outpatient (CLI) | payer OTHER ==
--- NOTE | 2020-03-12 16:13 | RAD ---
EXAM: XR Lumbar Spine Min 4 View PROVIDED CLINICAL HISTORY: Lumbar spondylosis. COMPARISON: 12/30/2018 FINDINGS: Again noted are 5 nonrib-bearing lumbar-type vertebral bodies. Multilevel osteophytes are present pre dominantly in the upper lumbar spine. The vertebral body heights and intervertebral disc spaces are within normal limits. No fracture or subluxation is seen involving the lumbar spine. No abnormal curiel slational motion is seen between the flexion and extension views. Surgical clips are again seen overlying the abdomen. No interval change from the prior exam. IMPRESSION: Multilevel degenerative changes in the lumbar spine overall similar to prior study.
== END 2020-03-12 15:49 | disposition home or self-care (01) ==
LOC: BICRAD 15:48
PROVIDERS: ATTEND Anesthesiology Pain Medicine
DX: M47.816 Spondylosis without myelopathy or radiculopathy, lumbar region (principal)
CPT/HCPCS: 72110

== ENCOUNTER 2020-04-30 15:29 | Outpatient (CLI) | payer OTHER ==
--- NOTE | 2020-04-30 16:23 | MMO ---
Bilateral MAMMO Bilat Screen [facility]. CLINICAL HISTORY: Patient is 54 years old and is seen for screening. The patient has no family history of breast cancer. The patient has a history of kidney cancer at age 42. VIEWS: The views performed were: bilateral craniocaudal with tomosynthesis and bilateral mediolateral oblique with tomosynthesis. FILMS COMPARED: The present examination has been compared to prior imaging studies performed at [facility] on 04/12/2018 and 04/25/2019, and at [facility] on 12/02/2015 and 03/17/2017. This study has been interpreted with the assistance of computer-aided detection. MAMMOGRAM FINDINGS: There are scattered fibroglandular densities. There are no suspicious masses, suspicious calcifications, or new areas of architectural distortion. IMPRESSION: THERE IS NO MAMMOGRAPHIC EVIDENCE OF MALIGNANCY. A ROUTINE FOLLOW-UP MAMMOGRAM IN 1 YEAR IS RECOMMENDED. THE RESULTS OF THIS EXAM WERE SENT TO THE PATIENT. ACR BI-RADS Category 1 - Negative MAMMOGRAPHY NOTE: 1. A negative mammogram report should not delay a biopsy if a dominant of clinically suspicious mass is present. 2. Approximately 10% to 15% of breast cancers are not detected by mammography. 3. Adenosis and dense breasts may obscure an underlying neoplasm. Reported by: BRUNO HENDERSON MD Electonically Signed: [id number]
== END 2020-04-30 15:30 | disposition home or self-care (01) ==
LOC: BICMAMMO 15:29
PROVIDERS: ATTEND Obstetrics & Gynecology
DX: Z12.31 Encounter for screening mammogram for malignant neoplasm of breast (principal); Z85.528 Personal history of other malignant neoplasm of kidney
CPT/HCPCS: 77063; 77067

== ENCOUNTER 2022-01-28 09:27 | Outpatient (CLI) | payer BC | END 2022-01-28 09:28 | disposition home or self-care (01) | LOC: BICRAD 09:27 | PROVIDERS: ATTEND Urology | DX: C64.1 Malignant neoplasm of right kidney, except renal pelvis (principal) | CPT/HCPCS: 71046 ==

== ENCOUNTER 2022-02-11 08:39 | Outpatient (CLI) | payer BC ==
[2022-02-11] MEDS ORDERED: Iopamidol 370 76% 100 ML VIAL ONE (09:01)
== END 2022-02-11 08:40 | disposition home or self-care (01) ==
LOC: CT 08:39
PROVIDERS: ATTEND Urology
DX: C64.9 Malignant neoplasm of unspecified kidney, except renal pelvis (principal)
CPT/HCPCS: 74178; Q9967

== ENCOUNTER 2022-12-10 10:27 | Outpatient (CLI) | payer BC ==
[2022-12-10] MEDS ORDERED: Iopamidol-370 76% 500 ML MDV (1 ML CHARGE) ONE (15:13)
== END 2022-12-10 10:28 | disposition home or self-care (01) ==
LOC: BICCT 10:27
PROVIDERS: ATTEND Internal Medicine
DX: R10.13 Epigastric pain (principal); R10.32 Left lower quadrant pain; N28.9 Disorder of kidney and ureter, unspecified; Z90.49 Acquired absence of other specified parts of digestive tract; Z85.528 Personal history of other malignant neoplasm of kidney; Z98.890 Other specified postprocedural states
CPT/HCPCS: 74177; 82565; Q9967

== ENCOUNTER 2024-02-03 09:07 | Outpatient (CLI) | payer BC | END 2024-02-03 09:08 | disposition home or self-care (01) | LOC: BICRAD 09:07 | PROVIDERS: ATTEND Urology | DX: C64.1 Malignant neoplasm of right kidney, except renal pelvis (principal) | CPT/HCPCS: 71046 ==

== ENCOUNTER 2024-02-09 09:58 | Outpatient (CLI) | payer BC | END 2024-02-09 09:59 | disposition home or self-care (01) | LOC: BICRAD 09:58 | PROVIDERS: ATTEND Internal Medicine | DX: M54.2 Cervicalgia (principal); M25.551 Pain in right hip; M16.11 Unilateral primary osteoarthritis, right hip; M47.812 Spondylosis without myelopathy or radiculopathy, cervical region | CPT/HCPCS: 72040 ==

== ENCOUNTER 2024-03-13 13:01 | Outpatient (CLI) | payer BC | END 2024-03-13 13:02 | disposition home or self-care (01) | LOC: SCSMRI 13:01 | PROVIDERS: ATTEND Nurse Practitioner Family | DX: M47.22 Other spondylosis with radiculopathy, cervical region (principal) | CPT/HCPCS: 72141 ==

== ENCOUNTER 2024-05-16 08:36 | Outpatient (CLI) | payer BC | END 2024-05-16 08:37 | disposition home or self-care (01) | LOC: BICCT 08:36 | PROVIDERS: ATTEND Specialist | DX: M54.12 Radiculopathy, cervical region (principal); M48.02 Spinal stenosis, cervical region | CPT/HCPCS: 72125 ==

== ENCOUNTER 2024-06-09 08:36 | Outpatient (CLI) | payer BC | END 2024-06-09 08:37 | disposition home or self-care (01) | LOC: NM 08:36 | PROVIDERS: ATTEND Specialist | DX: C79.49 Secondary malignant neoplasm of other parts of nervous system (principal); M47.812 Spondylosis without myelopathy or radiculopathy, cervical region | CPT/HCPCS: 78306; A9503 ==